=== PATIENT | male | born 1965 | race Caucasian/White ===

== ENCOUNTER 2021-09-26 09:47 | Outpatient (CLI) | payer OTHER, SELFPAY ==
--- OUTSIDE RECORDS SUMMARY | 2021-09-26 09:50 | XMS_ITS ---
:1965 Author Care Team Providers Name Role Phone Yuan Schulte Primary Care Provider Unavailable Allergies Code Code System Name Reaction Severity Status Onset NKDA ? Medications Name Status Start Date Stop Date ? ? amlodipine 10 mg tablet Active ? Not avai lable amoxicillin 500 mg capsule Active ? Not a vailable Take 1 capsule every 8 hours by oral route for 10 days. amoxicillin 875 mg-potassium clavulanate 125 mg tablet Completed ? 05/07/2021 atorvastatin 80 mg tablet Active ? Not av ailable cefdinir 300 mg capsule Active ? Not avai lable cefuroxime axetil 500 mg tablet Active ? Not available chlorthalidone 25 mg tablet Active ? Not available lisinopril 10 mg tablet Active ? Not avai lable methylprednisolone 4 mg tablets in a dose pack Completed ? 05/07/2021 metoprolol succinate ER 100 mg tablet,extended release Active ? Not available 24 hr naproxen Active ? Not available omeprazole 20 mg capsule,delayed release Active ? Not available Problems None recorded. Procedures None recorded. Results Lab Results Date Name Specimen Result Interpretation Description Value Range Status Address ? 08/31/2021 Rapid SARS CoV Nose (nasal ? Result negative ? ? [facility] 2 Ag, QL [place], passage) Ur [facility] Care Respiratory [place]: Specimen [address] , [place] 01/01/2021 SARS CoV 2 RNA, Nose (nasal ? Result positive ? ? [facility] QL, RENNY+probe, passage) Urgent Care Nose [place]: [address] , [place] Past Encounters 08/31/2021 Exposure to SARS-CoV-2 JARVIS Messina: [address], [place] [address], Ph. 05/18/2021 Acute Sinusitis JARVIS Messina: [address], [place] [address], Ph. 05/07/2021 Acute Sinusitis Yuan Schulte PA: [address], [address], [place] [address], Ph. 02/26/2021 Acute Sinusitis JARVIS Messina: [address], [address], [place] [address], Ph. 01/01/2021 Exposure to SARS-CoV-2 JARVIS Messina: [address], [address], [place] [address], Ph. Social History Tobacco Smoking Status Heavy Tobacco Smoker (1 pack per day) Vaccine List Vaccine Type COVID-19, mRNA, LNP-S, PF, 100 mcg/0.5 m L dose (Moderna) 03/30/2020 04/27/2020 02/06/2021 influenza, injectable, quadrivalent, pre servative free 12/08/2017 Td (adult) preservative free 04/03/2006 Tdap 08/11/2016 Plan of Care Patient Instructions RTC as needed. Push fluids and rest. Tylenol as needed for pain or fever. Mucinex otc as needed for congestion. Nasal saline flushes 3-4 times daily. Take Cefdinir as prescribed x 2 weeks. See care instructions. PCP follow up in 1-2 week if not resolvi ng, sooner if problems, to ED if worsening. Push fluids and rest. Tylenol as needed for pain or fever. Nasal saline flushes 3-4 times daily. Mucinex otc as needed for congestion. See care instructions. PCP follow up in 4-5 days if not improvi ng, sooner if problems, to ED if worsening. Sinusitis, patient doing well, no worri some findings today, elevated BP patient asymptomatic, Advised symptomatic cares, cover with Augmentin. Patient verbally agrees to the following plan. Push fluids and rest. Tylenol as needed for pain or fever. See PCP in follow up per routine for BP elevation, to ED if CP, SOB, BEJARANO, or weakness. See care instructions. PCP follow up in 4-5 days if not improvi ng, sooner if problems, to ED if worsening. Covid 19 infx, patient doing well, symp tomatic cares. Has follow up scheduled with PCP in 24 hours. Discussed rapid covid results with colt noriega and recommended quarantine per CDC guidelines. Patient to follow up with work for further guidelines. Patient appears well, vitals stable and no immediate conc erns. Patient understands and agrees wit h treatment plan and instructions. Symptom management discussed. Medication side effects discussed. Discussed risks? benefits? alternatives? side effects of treatment. If symptoms p rogress or worsen, patient should proceed to the emergency room immediately. All questions answered. See care instructions. PCP follow up tomorrow, to ED if worseni ng. Reminders Provider Appointments None recorded. ? ? Lab None recorded. ? ? Referral None recorded. ? ? Procedures None recorded. ? ? Surgeries None recorded. ? ? Imaging None recorded. ? ? Vitals 08/31/2021 01:40PM URGENT CARE Blood Pressure 158/79 mm[Hg] 05/18/2021 09:00AM URGENT CARE Blood Pressure 160/88 mm[Hg] 05/07/2021 09:45AM URGENT CARE FOLLOW UP Blood Pressure 173/97 mm[Hg] 02/26/2021 09:40AM URGENT CARE Blood Pressure 172/102 mm[Hg] 01/01/2021 02:15PM URGENT CARE Blood Pressure 146/97 mm[Hg]
--- OUTSIDE RECORDS SUMMARY | 2021-09-26 09:50 | XMS_ITS | Encounter Summary ---
:1965 Author Reason for Visit COVID-19 screening Assessment and Plan Assessment Note Discussed rapid covid results with jonathan ent. No treatment indicated as patient is asymptomatic. Patient in agreement and understanding. All questions answered. 1. Exposure to SARS-CoV-2 positive result given to patient ? coronavirus (covid-19): care instruct ions ? rapid SARS CoV 2 Ag, QL IA, respirato ry specimen ? COVID-19 counseling* ? COVID-19 QUARANTINE GUIDANCE [facility] Discussion Note: None recorded. Plan of Care Patient Instructions RTC as needed. Reminders Provider Appointments None recorded. ? ? Lab Rapid SARS CoV 2 Ag, QL IA, 08/31/2021 [facility] Respiratory Specimen [place] Referral None recorded. ? ? Procedures None recorded. ? ? Surgeries None recorded. ? ? Imaging None recorded. ? ? Medications Name Start Date ? ? amlodipine 10 mg tablet ? amoxicillin 500 mg capsule ? Take 1 capsule every 8 hours by oral route for 10 day s. atorvastatin 80 mg tablet ? cefdinir 300 mg capsule ? Take 1 capsule every 12 hours by oral route for 14 da ys. cefuroxime axetil 500 mg tablet ? chlorthalidone 25 mg tablet ? lisinopril 10 mg tablet ? metoprolol succinate ER 100 mg tablet,extended release 24 hr ? naproxen ? omeprazole 20 mg capsule,delayed release ? Medications Administered None recorded. Vitals Blood Pressure 158/79 mm[Hg] Results Lab Results Date Name Specimen Result Interpretation Description Value Range Status Address ? 08/31/2021 Rapid SARS CoV Nose (nasal ? Result negative ? ? [facility] 2 Ag, QL [place], passage) Ur [facility] Care Respiratory [place]: Specimen [address] , [place] Allergies Code Code System Name Reaction Severity Onset NKDA ? ? ? Problems None recorded. Procedures None recorded. Vaccine List Vaccine Type COVID-19, mRNA, LNP-S, PF, 100 mcg/0.5 m L dose (Moderna) 03/30/2020 04/27/2020 02/06/2021 influenza, injectable, quadrivalent, pre servative free 12/08/2017 Td (adult) preservative free 04/03/2006 Tdap 08/11/2016 Social History Tobacco Smoking Status Heavy Tobacco Smoker (1 pack per day) What is your level of alcohol consumption? Occasional Do you or have you ever used any other N forms of tobacco or nicotine? Family History Relation Problem Onset Age of Age Notes Father No current problems or (No Information) N/A ( No Notes) disability Mother No current problems or (No Information) N/A ( No Notes) disability Functional Status Unknown. Past Encounters 08/31/2021 Exposure to SARS-CoV-2 JARVIS Messina: [address], [place] [address], Ph. History of Present Illness ? COVID-19 Asymptomatic Reported By: Patient HPI: Contacts and Exposure close contact with a confirmed or suspected case of COVID-19, potential expos ure in specific settings where COVID-19 cases have been reported. Co ntext: Asymptomatic. Quality: none. Severity: none. Duration: no ne. Location: none. Modifying factors: none Notes: <div>Traveling, needs covid screening, no symptoms.</div> Review of Systems ? Urgent Care ROS Reported By: Patient Constitutional: Constitutional: no fever, no night sweats, no significant weight gain, no significant weight loss, no exercise intolerance, no chills, no m alaise Eyes: Eyes: no dry eyes, no vision change, no irritation, no eye disease/injury ENMT: Ears: no difficulty hearing, no ear pain. Nose: no frequent nosebleeds, no nose problems , no sinus problems, no congestion, loss of taste/sm ell: normal. Mouth/Throat: no sore throat, no bleeding gums, no snoring, no dry mouth, no mouth ulcers, no oral abnormalitie s, no teeth problems, no ringing in the ears, no sinusitis Cardiovascular: Cardiovascular: no chest anna marie n, no arm pain on exertion, no shortness of breath when wal dariel, no shortness of breath when lying down, no palpitations, no known heart murmur, no ankle swelling Respiratory: Respiratory: no cough, no wh eezing, no shortness of breath, no coughing up blood, no sleep apnea Gastrointestinal: Gastrointestinal: no abdomin al pain, no nausea, no vomiting, no constipation, normal appe tite, no diarrhea, not vomiting blood, no dyspepsia, no GERD , No loose stools Genitourinary: Genitourinary: no incontinen ce, no difficulty urinating, no hematuria, no increased freq uency, no dysuria Musculoskeletal: Musculoskeletal: no muscle a ches, no arthralgias/joint pain, no back pain, no swelling in the extremities, no neck pain, no difficulty walking, muscle w eakness, no cramps, no osteoporosis, no fractures Integumentary: Skin: no abnormal mole, no j aundice, no rashes, no laceration, no non-healing areas, no nicanor nges in hair/nails, no psoriasis, no change in skin color, no breast lump Neurologic: Neurologic: no loss of consc iousness, no weakness, no numbness, no seizures, no di zziness, no migraines, no tremor, no gait dysfunction, no para lysis Psychiatric: Psych: no depression, no sle ep disturbances, feeling safe in a relationship, no alcohol abu se, no anxiety, no hallucinations, no suicidal thoughts, no moo d swings, no memory loss, no agitation, no dementia, no d elirium Endocrine: Endocrine: no fatigue Hematologic/Lymphatic: Hematologic/Lymphatic no swo llen glands, no bruising, no excessive bleeding, no anemi a, no phlebitis Allergic/Immunologic: Allergy/Immunologic: no runn y nose, no sinus pressure, no itching, no hives, no freque nt sneezing Physical Exam ? COVID-19 Exam Reported By: Patient General Appearance: General Appearance normal ap pearance, no distress ENMT: Ears: hearing grossly intact Lungs: Auscultation non-labored res piration Abdomen: Abdomen not distended
--- OUTSIDE RECORDS SUMMARY | 2021-09-26 09:50 | XMS_ITS | Encounter Summary ---
:1965 Author Organization [facility] Address [address] [place] [address] Care Team Providers Name Role Phone Unavailable Primary Care Provider Unavailable Reason for Visit Procedure/Equipment (Routine) - Incomplete Specialty Diagnoses / Procedures Referred By Contact Refer red To Contact Procedures Lenard Taylor MD Foreign Image(S) MR Extremity [address] [place], [place] [address] Referral ID Status Reason Start Date Expiration Date Visits V isits Requested Authorized [id number] Incomplete 03/26/2016 06/25/2017 1 1 Encounter Details Date Type Department Care Team Description 03/09/2016 Imaging [id number] RADIOLOGY CENTRAL FILM Lenard Traore MD LIBRARY [address] [facility] [address] [facility]. [place], [place] [id number] [place] [address] Social History Tobacco Use Types Packs/Day Years Used Date Smoking Tobacco: Never Assessed Sex Assigned at Date Recorded Not on file documented as of this encounter Plan of Treatment Not on filedocumented as of this encounter Procedures Procedure Name Priority Date/Time Associated Diagnosis Comme nts FOREIGN IMAGE(S) MR Routine 03/09/2016 12:00 AM R esults for this EXTREMITY LT CAN SOLDERER procedure are i n the results section. documented in this encounter Results Foreign Image(S) MR Extremity Lt (03/09/2016 12:00 AM CAN SOLDERER) Specimen (Source) Anatomical Location Collection Method / Collectio n Time Received Time / Laterality Volume Narrative PN POCT - 03/26/2016 8:25 AM CAN SOLDERER These outside images have been uploaded into PACS. If the results were provided, they will be located on the Me rosaroi tab in the patient's chart. Lenard Taylor MD RAD NON-REPORTABLES Performing Organization Address City/State/ZIP Code Phon e Number POCT PN POCT documented in this encounter Visit Diagnoses Not on filedocumented in this encounter
--- OUTSIDE RECORDS SUMMARY | 2021-09-26 09:50 | XMS_ITS | Encounter Summary ---
:1965 Author Organization [facility] Address [address] [place] [address] Care Team Providers Name Role Phone Pcp, Pt Declines MD Primary Care Provider Reason for Visit Procedure/Equipment (Routine) - Incomplete Specialty Diagnoses / Procedures Referred By Contact Refer red To Contact Diagnoses Left shoulder pain, unspecified chronicity Lenard Taylor MD Procedures XR Shoulder Lt 2+ Views [address] [facility] [address] [place], [place] [address] Referral ID Status Reason Start Date Expiration Date Visits V isits Requested Authorized [id number] Incomplete 04/16/2016 07/16/2017 1 1 Encounter Details Date Type Department Care Team Description 04/16/2016 Imaging [facility] Lenard Taylor, Left shoulder pain, [address] [facility] unspecified chronicity [place], [place] [address] [address] [facility] [phone] [place] [address] (Wo rk) Social History Tobacco Use Types Packs/Day Years Used Date Smoking Tobacco: Every Day Sex Assigned at Date Recorded Not on file documented as of this encounter Plan of Treatment Not on filedocumented as of this encounter Procedures Procedure Name Priority Date/Time Associated Diagnosis Comme nts XR SHOULDER LT 2+ Routine 04/16/2016 4:23 PM Left shoulder anna marie n, Results for this VIEWS STAGE SET DESIGNER unspecified procedure are i n chronicity the results section. documented in this encounter Results XR Shoulder Lt 2+ Views (04/16/2016 4:23 PM STAGE SET DESIGNER) Anatomical Region Laterality Modality Upper Extremity, Shoulder Digital Radiog valerie Specimen (Source) Anatomical Location Collection Method / Collectio n Time Received Time / Laterality Volume Narrative 04/19/2016 3:54 PM STAGE SET DESIGNER X-rays of the left shoulder demonstrate advanced stage osteoarthritis of the glenohumeral joint with posterior an d inferior osteophytes and significant full-thickness cartilage los s. No deformity or significant erosion of the glenoid or humeral head. Some fraying and partial tearing of the posterosuperior glenoid labral. N o obvious rotator cuff disease or tearing. Lenard Taylor MD RAD GD documented in this encounter Visit Diagnoses Diagnosis Left shoulder pain, unspecified chronici ty documented in this encounter Care Teams Machine Heel Sprayer Relationship Specialty Start Date End Date PcpBenny MD PCP - General 03/18/16 [place], [place] [phone] documented as of this encounter
--- NOTE | 2021-09-26 10:00 | CRLHL7_ITS ---
For Patients: As a result of the Cures Act, medical imaging exams and procedure reports are released immediately into your electronic medical record. You may view this report before your referring provider. If you have questions, please contact your health care provider. Indication: Sinusitis Technique: Performed without IV contrast Comparison: None available Findings: Frontal sinuses: Near complete opacification of the left frontal sinus. Clear right frontal sinus. Ethmoid sinuses: Near complete opacification of the left ethmoid sinus. Clear right ethmoid sinus. Maxillary sinuses: Complete opacification of the left maxillary sinus with obstruction of the sinus drainage pathway. Clear right maxillary sinus and patent right ostiomeatal complex. Sphenoid sinuses: Near complete opacification of the left sphenoid sinus with obstruction of the sphenoethmoidal recess. Clear right sphenoid sinus with patent right sphenoethmoidal recess. Nasal Cavity: Leftward curvature of the nasal septum. The middle turbinate is obscured by soft tissue thickening. Right-sided turbinates are normal. No TMJ abnormalities identified. The visualized portions of the orbits, intracranial contents and upper soft tissue neck are grossly negative. Impression: 1. Severe left-sided sinus disease with obstruction of the left-sided sinus drainage pathways. 2. Soft tissue density within the left nasal cavity with obscuration of the left middle turbinates suggesting polyps. Please note that all CT scans at this facility use dose modulation, iterative reconstruction, and/or weight-based dosing when appropriate to reduce radiation dose to as low as reasonably achievable. Dictated by Alec Winkler MD @ 09/26/2021 10:16:17 AM (Electronically Signed)
== END 2021-09-26 09:48 | disposition home or self-care (01) ==
PROVIDERS: PCP Family Medicine; Visit Provider Otolaryngology
DX: J32.9 Chronic sinusitis, unspecified (principal); J34.89 Other specified disorders of nose and nasal sinuses
CPT/HCPCS: 70486

== ENCOUNTER 2021-10-08 10:06 | Outpatient (CLI) | payer OTHER, SELFPAY ==
--- OUTSIDE RECORDS SUMMARY | 2021-10-08 10:08 | XMS_ITS | Clinical Summary ---
:1965 Author Organization [facility] Address [address] [place] [address] Care Team Providers Name Role Phone Pcp, Pt Declines MD Primary Care Provider Source Comments You are receiving this document as you are listed as the primary care provider,follow-up provider, or the patient has been referred to you for consultation.This is in compliance with the Medicare and Medicaid EHR Incentive Program,which states Providers who transition their patient to another setting of careor provider of care or refers their patient to another provider of care shouldprovide summarycare record for each transition of care or referral. [facility] Allergies No known active allergies Medications Medication Sig Dispensed Refills Start Date End Date Status aspirin 81 MG tablet Take 81 mg by 0 Active mouth daily. omeprazole (PRILOSEC) 20 Take 20 mg by 0 Active MG capsule mouth daily. Take 1 hour before a meal. acetaminophen (TYLENOL 8 Take 650 mg by 0 Active HOUR ARTHRITIS PAIN) 650 mouth every 8 MG controlled release hours as needed tablet for Pain. atorvastatin (LIPITOR) 40 Take 40 mg by 0 Active MG tablet mouth daily. amLODIPine (NORVASC) 10 Take 10 mg by 0 Active MG tablet mouth daily. atenolol (TENORMIN) 100 Take 100 mg by 0 Active MG tablet mouth daily. chlorthalidone (HYGROTON) Take 25 mg by 0 Active 25 MG tablet mouth daily. predniSONE (DELTASONE) 20 Take 20 mg by 0 Active MG tablet mouth daily. cyclobenzaprine Take 5 mg by 0 A ctive (FLEXERIL) 5 MG tablet mouth three times a day as needed for Muscle Spasms. Active Problems No known active problems Social History Tobacco Use Types Packs/Day Years Used Date Smoking Tobacco: Every Day Sex Assigned at Date Recorded Not on file Last Filed Vital Signs Vital Sign Reading Time Taken Comments Blood Pressure - - Pulse - - Temperature - - Respiratory Rate - - Oxygen Saturation - - Inhaled Oxygen Concentration - - Weight 108.9 kg (240 lb) 04/16/2016 3:46 PM RECONCILING CLERK Height 170.2 cm (5' 7) 04/16/2016 3:46 PM RECONCILING CLERK Body Mass Index 37.59 04/16/2016 3:46 PM RECONCILING CLERK Plan of Treatment Health Maintenance Due Date Last Done Comments Colon Cancer Screening Plan Due 1965 Hep C Screening (Preventive 1965 Services) HepB (1) 1965 COVID-19 Vaccine (#1) 1965 HIV Screening (Preventive 1982 Services) Adult Preventive Visit 02/10/1984 DTaP/Tdap/Td (1 - Tdap) 1985 Cholesterol 2001 Zoster/Shingles (1 of 2) 02/10/2016 Influenza (#1) 2021 HepA Aged Out No longer eligib le based on patient's age to complete this topic Hib Aged Out No longer eligib le based on patient's age to complete this topic IPV (Polio) Aged Out No longer eligib le based on patient's age to complete this topic MCV4 Aged Out No longer eligib le based on patient's age to complete this topic Pneumococcal Aged Out No longer eligib le based on patient's age to complete this topic Insurance Payer Benefit Plan / Subscriber ID Effective Dates Phone Addre ss Type Group BCBS BCBS MNCARE [id number] 2016-Present [address] [address] [place] [address] Care Teams Retail Support Specialist Relationship Specialty Start Date End Date PcpBenny MD PCP - General 03/18/16 [place] [address]
--- OUTSIDE RECORDS SUMMARY | 2021-10-08 10:08 | XMS_ITS | Encounter Summary ---
[...] ? COVID-19 counseling* ? COVID-19 QUARANTINE GUIDANCE [facility] Discussion Note: None recorded. Plan of Care Patient Instructions RTC as needed. Reminders Provider Appointments None recorded. ? ? Lab Rapid SARS CoV 2 Ag, QL [place], 08/31/2021 [facility] Respiratory Specimen [place] Referral None recorded. ? ? Procedures None [...] [facility] 2 Ag, QL [place], passage) Ur [facility] Care Respiratory [place]: Specimen [address] , [place] Allergies Code Code System Name Reaction Severity [...] JARVIS Messina: [address], [place] [address], Ph. History of Present Illness ? COVID-19 [...]
--- OUTSIDE RECORDS SUMMARY | 2021-10-08 10:08 | XMS_ITS | Encounter Summary ---
:1965 Author Organization [facility] Address [address] [place] [address] Care Team Providers Name Role Phone Unavailable Primary Care Provider Unavailable Reason for Visit Procedure/Equipment (Routine) - Incomplete Specialty Diagnoses / Procedures Referred By Contact Refer red To Contact Procedures Lenard Taylor MD Foreign Image(S) MR Extremity [address] [place], [place] [address] Referral ID Status Reason Start Date Expiration Date Visits V isits Requested Authorized [id number] Incomplete 03/26/2016 06/25/2017 1 1 Encounter Details Date Type Department Care Team Description 03/09/2016 Imaging [id number] RADIOLOGY CENTRAL FILM Lenard Traore MD LIBRARY [address] [facility] [address] [facility]. [place], [place] [id number] [place] [address] Social History Tobacco Use Types Packs/Day Years Used Date Smoking Tobacco: Never Assessed Sex Assigned at Date Recorded Not on file documented as of this encounter Plan of Treatment Not on filedocumented as of this encounter Procedures Procedure Name Priority Date/Time Associated Diagnosis Comme nts FOREIGN IMAGE(S) MR Routine 03/09/2016 12:00 AM R esults for this EXTREMITY LT CHIEF LIBRARIAN CIRCULATION DEPARTMENT procedure are i n the results section. documented in this encounter Results Foreign Image(S) MR Extremity Lt (03/09/2016 12:00 AM CHIEF LIBRARIAN CIRCULATION DEPARTMENT) Specimen (Source) Anatomical Location Collection Method / Collectio n Time Received Time / Laterality Volume Narrative PN POCT - 03/26/2016 8:25 AM CHIEF LIBRARIAN CIRCULATION DEPARTMENT These outside images have been uploaded into PACS. If the results were provided, they will be located on the Me rosario tab in the patient's chart. Lenard Taylor MD RAD NON-REPORTABLES Performing Organization Address City/State/ZIP Code Phon e Number POCT PN POCT documented in this encounter Visit Diagnoses Not on filedocumented in this encounter
--- OUTSIDE RECORDS SUMMARY | 2021-10-08 10:08 | XMS_ITS ---
[...] [address] , [place] 01/01/2021 SARS CoV 2 RNA, Nose (nasal ? Result positive ? ? [facility] QL, RENNY+probe, passage) Urgent Care Nose [place]: [address] , [place] Past Encounters 08/31/2021 Exposure to SARS-CoV-2 JARVIS Messina: [address], [place] [address], Ph. 05/18/2021 Acute Sinusitis JARVIS Messina: [address], [place] [address], Ph. 05/07/2021 Acute Sinusitis Yuan Schulte PA: [address], [address], [place] [address], Ph. 02/26/2021 Acute Sinusitis JARVIS Messina: [address], [address], [place] [address], Ph. 01/01/2021 Exposure to SARS-CoV-2 JARVIS Messina: [address], [address], [place] [address], Ph. Social History Tobacco Smoking Status Heavy [...]
--- OUTSIDE RECORDS SUMMARY | 2021-10-08 10:08 | XMS_ITS | Encounter Summary ---
:1965 Author Organization [employer] Address [address] [place] [address] Care Team Providers Name Role Phone Pcp, Pt Declines MD Primary Care Provider Reason for Referral Procedure/Equipment (Routine) - Incomplete Specialty Diagnoses / Procedures Referred By Contact Refer red To Contact Diagnoses Left shoulder pain, unspecified chronicity Lenard Taylor MD Procedures XR Shoulder Lt 2+ Views [address] [place], [place] [address] Referral ID Status Reason Start Date Expiration Date Visits V isits Requested Authorized [id number] Incomplete 04/16/2016 07/16/2017 1 1 DENSITY FINISHING OPERATOR Reason for Visit Reason Comments SHOULDER PAIN Encounter Details Date Type Department Care Team Description 04/16/2016 Surgical Consult [facility] Lenard Taylor shoulder pain, DEBBIE Helms MD unspecified [address] chronicity (Primary [place], [place] Dx) [id number] Social History Tobacco Use Types Packs/Day Years Used Date Smoking Tobacco: Every Day Sex Assigned at Date Recorded Not on file documented as of this encounter Last Filed Vital Signs Vital Sign Reading Time Taken Comments Blood Pressure - - Pulse - - Temperature - - Respiratory Rate - - Oxygen Saturation - - Inhaled Oxygen Concentration - - Weight 108.9 kg (240 lb) 04/16/2016 3:46 PM HIGH DENSITY FINISHING OPERATOR Height 170.2 cm (5' 7) 04/16/2016 3:46 PM HIGH DENSITY FINISHING OPERATOR Body Mass Index 37.59 04/16/2016 3:46 PM HIGH DENSITY FINISHING OPERATOR documented in this encounter Progress Notes Lenard Taylor MD - 04/18/2016 11:12 AM CST NAME: KYAW SMITH MR#: [id number] CSN: [id number] AUTHENTICATING CLINICIAN: Lenard Taylor MD CONFIRM #: [id number] LOC: 711 CLINIC PROGRESS NOTE DATE OF VISIT: 04/16/2016 : 1965 REASON FOR CONSULTATION: Left shoulder pain. HISTORY OF PRESENT ILLNESS: Mr. Smith is a right-hand dominant, 51-year-old gentleman with an unremarkable past medical history who has been having increasing discomfort in his left shoulder over the past 6 weeks without any specific inciting event. 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 He has a insignificant orthopaedic history and never received any sort of injections, surgery or prior injury to this left shoulder. He has no significant change inhis strength in his upper extremities and notes most of his discomfort to be during overhead activities while at work. Otherwise, the patient does not engage in any other strenuous activity that would stress the shoulder as his main hobby is fishing and ice fishing. REVIEW OF SYSTEMS: A 15-point review of systems was conducted and otherwise negative except for HPI above. PAST MEDICAL HISTORY: Hypertension. PAST SURGICAL HISTORY: Noncontributory. MEDICATIONS: As reviewed on electronic medical record. ALLERGIES: No known drug allergies. SOCIAL HISTORY: 1.Right-hand dominant. 2.Employed as a contractor and licensed physical therapist assistant, self-employed. 3., lives with . 4.Main hobbies include fishing and ice fishing. IMAGING: Review of MRI performed at [facility]. X-rays were ordered and independently reviewed by me. X-rays of the left shoulder demonstrate advanced stage osteoarthritis of the glenohumeral joint withposterior and inferior osteophytes and significant full- thickness cartilage loss. No deformity or significant erosion of the glenoid or humeral head. Some fraying and partial tearing of the posterosuperior glenoid labral. No obvious rotator cuff disease or tearing. IMPRESSION: 1.Advanced stage glenohumeral osteoarthritis. 2.Partial tearing of the posterosuperior labrum, left shoulder. PLAN: It was determined at this time that although the patient has advanced degenerative arthritis it is not significant enough at this point to undergo any sort of surgical intervention. Although the patient remains young, he is employed in a field where he consistently puts significant stress across his gl enohumeral joint and will require full shoulder replacement at some point in his future. Given that osteoarthritis is the disease process at hand, physical therapy will not be beneficial in improving his function and provide him with any pain relief. The best course of action at this time is to remainwith conservative management and to undergo daily stretching in order to maintain range of motion inaddition to modifying his activity and trying to limit the amount of strenuous activity he performs at his job. Furthermore, in order to plan accordingly for his future, it would be prudent for the patient to remain diligent in his followup and to return to clinic to see Dr. Taylor in one year's time with repeat 3 views of the left shoulder. This is in attempts to maintain close followup to prevent any further bony degradation or erosion that would preclude the patient to a more difficult operation in the future. If the patient has any questions or concerns or new issues that may arise prior to this one year followup, then he may call or arrange a closer followup date. All questions and concerns were addressed with this patient by Dr. Taylor to the patient's satisfaction. This patient was seen by and evaluated with Dr. Taylor who agrees with the above assessment and plan. I have personally examined this patient, and have reviewed the clinical presentation and progress note, including the pertinent radiographs, with the resident. I agree with the treatment plan as outlined. The plan was formulated with the resident on the day of the dictation and personally edited by mewhere appropriate. I personally discussed the treatment plan with the patient. Dictated by: Holland Cantu MD JPB: C: R:04/16/16 17:35 CONFIRM#:[id number] DENSITY FINISHING OPERATOR documented in this encounter Plan of Treatment Not on filedocumented as of this encounter Results XR Shoulder Lt 2+ Views (04/16/2016 4:23 PM HIGH DENSITY FINISHING OPERATOR) Anatomical Region Laterality Modality Upper Extremity, Shoulder Digital Radiog valerie Specimen (Source) Anatomical Location Collection Method / Collectio n Time Received Time / Laterality Volume Narrative 04/19/2016 3:54 PM HIGH DENSITY FINISHING OPERATOR X-rays of the left shoulder demonstrate advanced [...] Diagnosis Left shoulder pain, unspecified chronici ty - Primary Left shoulder pain, unspecified chronici ty documented in this encounter Care Teams Artillery Or Naval Gunfire Observer Relationship Specialty Start Date End Date Pcp, Benny Wood MD PCP - General 03/18/16 [place] [address] documented as of this encounter
--- OUTSIDE RECORDS SUMMARY | 2021-10-08 10:08 | XMS_ITS | Encounter Summary ---
:1965 Author Organization [employer] Address [address] [place] [address] Care Team Providers Name Role Phone Pcp, Pt Declines MD Primary Care Provider Reason for Visit Procedure/Equipment (Routine) - Incomplete Specialty Diagnoses / Procedures Referred By Contact Refer red To Contact Diagnoses Left shoulder pain, unspecified chronicity Lenard aTylor MD Procedures XR Shoulder Lt 2+ Views [address] [facility] [address] [place], [place] [address] Referral ID Status Reason Start Date Expiration Date Visits V isits Requested Authorized [id number] Incomplete 04/16/2016 07/16/2017 1 1 Encounter Details Date Type Department Care Team Description 04/16/2016 Imaging [facility] Lenard Taylor, Left shoulder pain, [address] [facility] unspecified chronicity [place], [place] [address] [address] [facility] [phone] [place] [address] (Wo rk) Social History Tobacco Use Types [...] anna marie n, Results for this VIEWS TANK PUMPER PANELBOARD unspecified procedure are i n chronicity the results section. documented in this encounter Results XR Shoulder Lt 2+ Views (04/16/2016 4:23 PM TANK PUMPER PANELBOARD) Anatomical Region Laterality Modality Upper Extremity, Shoulder Digital Radiog valerie Specimen (Source) Anatomical Location Collection Method / Collectio n Time Received Time / Laterality Volume Narrative 04/19/2016 3:54 PM TANK PUMPER PANELBOARD X-rays of the left shoulder demonstrate advanced [...] ty documented in this encounter Care Teams Medical Genetics Director Relationship Specialty Start Date End Date PcpBenny MD PCP - General 03/18/16 [place], [place] [address] documented as of this encounter
--- NOTE | 2021-10-08 10:15 | MR_ITS ---
[address] [address] Phone:?[phone] Fax:?[phone] Referring Physician Information: Carl Sandoval M.D. [address] [place] [address] Phone:?[phone] Fax:?[phone] Patient:Filomena Medellin D.O.B:?1965 Sex:?Male Phone:?[phone] [facility] MRN:?[id number] Exam Date:?10/08/2021 ? EXAM: MRI of the LEFT SHOULDER, without contrast CLINICAL HISTORY: Left shoulder pain. Primary osteoarthritis. Evaluate for rotator cuff pathology. COMPARISONS: MRI 03/09/2016. TECHNICAL: MRI sequences of the left shoulder: Axials: PD, T2 Coronals: PD, STIR, T2 Sagittals: PD, T2 SEDATION: None CONTRAST: None FINDINGS: Bones: No fracture or destructive osseous lesion is seen. Coracoacromial arch: Acromion: No os acromiale. Type II acromion. Acromiohumeral space: The bony distance is unremarkable. Coracohumeral space: The bony distance measures 7-8 mm. Acromioclavicular joint: Mild degenerative changes with mild inferior osteophytosis/hypertrophy. Coracoclavicular ligament: The coracoclavicular ligament is intact. Rotator cuff muscles/tendons: Supraspinatus: Slight interstitial delamination/slight tendinopathy. No tendon tear or muscular atrophy. Infraspinatus: The infraspinatus tendon and muscle are intact. Teres minor: The teres minor tendon and muscle are intact. Subscapularis: Moderate to marked tendinopathy of the superior portion of the subscapularis tendon, mildly to moderately progressed compared to previous MRI 03/09/2016. No atrophy of the subscapularis muscle. Labrum: Fraying and degenerative tearing of the entire labrum. Proximal biceps tendon, long head and short heads: The long and short heads of the proximal biceps tendon are intact. Glenohumeral joint: Small glenohumeral joint effusion. Foci of ill-defined low signal likely reflect a combination of intra-articular bodies and synovitis. There is extensive near full-thickness and full-thickness chondral loss over all portions of the humeral head and glenoid with degenerative subchondral cystic changes within the anteroinferior portion the glenoid. There is marked osteophytosis at the inferior aspect of the glenohumeral joint. Glenohumeral joint osteoarthritic changes have mildly to moderately progressed compared to previous MRI 03/09/2016. No convincing evidence of capsular edema or thickening although evaluation is suboptimal because of lack of joint distention. Bursae: Subacromial/subdeltoid: No convincing subacromial bursal thickening/bursitis. Subcoracoid: No convincing subcoracoid bursal thickening/bursitis. IMPRESSION: 1. Marked left glenohumeral joint osteoarthritic changes, mildly to mildly progressed compared to previous MRI 03/09/2016 (including extensive near full- thickness and full-thickness chondral loss over all portions of the humeral head and glenoid, degenerative subchondral cystic changes within the anteroinferior portion the glenoid, marked osteophytosis, and fraying and degenerative tearing of the entire labrum). Small glenohumeral joint effusion. Foci of ill-defined low signal within the glenohumeral joint likely reflect a combination of intra- articular bodies and synovitis. 2. Slight interstitial delamination/slight tendinopathy of the supraspinatus tendon. 3. Moderate to marked tendinopathy of the superior portion of the subscapularis tendon, mildly to mildly progressed compared to previous MRI 03/09/2016. 4. No retracted rotator cuff tendon tear or rotator cuff muscular atrophy. 5. Intact biceps tendon. RCB Electronically signed on 10/08/2021 3:35:00 PM by Vladimir Cabello M.D.
== END 2021-10-08 10:07 | disposition home or self-care (01) ==
LOC: MRI 10:06
PROVIDERS: PCP Family Medicine; Visit Provider Orthopaedic Surgery
DX: M19.012 Primary osteoarthritis, left shoulder (principal); M25.412 Effusion, left shoulder; S43.492A Other sprain of left shoulder joint, initial encounter
CPT/HCPCS: 73221

== ENCOUNTER 2021-10-24 09:14 | Outpatient (CLI) | payer OTHER, SELFPAY ==
--- OUTSIDE RECORDS SUMMARY | 2021-10-24 09:17 | XMS_ITS | Encounter Summary ---
:1965 Author Organization [facility] Address [address] [place] [address] Care Team Providers Name Role Phone Unavailable Primary Care Provider Unavailable Reason for Visit Procedure/Equipment (Routine) - Incomplete Specialty Diagnoses / Procedures Referred By Contact Refer red To Contact Procedures Lenard Taylor MD Foreign Image(S) MR Extremity [address] [place], [place] [address] Referral ID Status Reason Start Date Expiration Date Visits V isits Requested Authorized [id number] Incomplete 03/26/2016 06/25/2017 1 1 Encounter Details Date Type Department Care Team Description 03/09/2016 Imaging [id number] RADIOLOGY CENTRAL FILM Lenard Traore MD LIBRARY [address] [facility] [address] [facility]. [place], [place] [id number] [place] [address] Social History Tobacco Use Types Packs/Day Years Used Date Smoking Tobacco: Never Assessed Sex Assigned at Date Recorded Not on file documented as of this encounter Plan of Treatment Not on filedocumented as of this encounter Procedures Procedure Name Priority Date/Time Associated Diagnosis Comme nts FOREIGN IMAGE(S) MR Routine 03/09/2016 12:00 AM R esults for this EXTREMITY LT GLUTEN SETTLING TENDER procedure are i n the results section. documented in this encounter Results Foreign Image(S) MR Extremity Lt (03/09/2016 12:00 AM GLUTEN SETTLING TENDER) Specimen (Source) Anatomical Location Collection Method / Collectio n Time Received Time / Laterality Volume Narrative PN POCT - 03/26/2016 8:25 AM GLUTEN SETTLING TENDER These outside images have been uploaded into PACS. If the results were provided, they will be located on the Me rosario tab in the patient's chart. Lenard Taylor MD RAD NON-REPORTABLES Performing Organization Address City/State/ZIP Code Phon e Number POCT PN POCT documented in this encounter Visit Diagnoses Not on filedocumented in this encounter
--- OUTSIDE RECORDS SUMMARY | 2021-10-24 09:17 | XMS_ITS | Encounter Summary ---
:1965 Author Organization [employer] Address [address] [place] [address] Care Team Providers Name Role Phone Pcp, Pt Declines MD Primary Care Provider Reason for Visit Procedure/Equipment (Routine) - Incomplete Specialty Diagnoses / Procedures Referred By Contact Refer red To Contact Diagnoses Left shoulder pain, unspecified chronicity Lenard Taylor MD Procedures XR Shoulder Lt 2+ Views [address] [facility] [address] [place], [place] [address] Referral ID Status Reason Start Date Expiration Date Visits V isits Requested Authorized [id number] Incomplete 04/16/2016 07/16/2017 1 1 Encounter Details Date Type Department Care Team Description 04/16/2016 Imaging [facility] Lenard Taylor, Left shoulder pain, [address] [facility] unspecified chronicity [place], [place] [address] [address] [facility] [phone] [place] [address] (Wo rk) Social History Tobacco Use Types [...] anna marie n, Results for this VIEWS REAL ESTATE ASSISTANT unspecified procedure are i n chronicity the results section. documented in this encounter Results XR Shoulder Lt 2+ Views (04/16/2016 4:23 PM REAL ESTATE ASSISTANT) Anatomical Region Laterality Modality Upper Extremity, Shoulder Digital Radiog valerie Specimen (Source) Anatomical Location Collection Method / Collectio n Time Received Time / Laterality Volume Narrative 04/19/2016 3:54 PM REAL ESTATE ASSISTANT X-rays of the left shoulder demonstrate advanced [...] ty documented in this encounter Care Teams Compressor Station Engineer Relationship Specialty Start Date End Date PcpBenny MD PCP - General 03/18/16 [place], [place] [address] documented as of this encounter
--- OUTSIDE RECORDS SUMMARY | 2021-10-24 09:17 | XMS_ITS | Encounter Summary ---
[...] ? COVID-19 counseling* ? COVID-19 QUARANTINE GUIDANCE [facility] Discussion Note: None recorded. Plan of Care Patient Instructions RTC as needed. Reminders Provider Appointments None recorded. ? ? Lab Rapid SARS CoV 2 Ag, QL [place], 08/31/2021 [facility] Respiratory Specimen [place] Referral None recorded. ? ? Procedures None [...] Compcare 2 Ag, QL [place], passage) Ur [facility] Care Respiratory [place]: Specimen [address] , [place] Allergies Code Code System Name Reaction Severity [...] JARVIS Messina: [address], [place] [address], Ph. History of Present Illness ? COVID-19 [...]
--- OUTSIDE RECORDS SUMMARY | 2021-10-24 09:17 | XMS_ITS | Clinical Summary ---
:1965 Author Organization [employer] [place] [address] Care Team Providers Name Role Phone Osvaldo Kang MD Primary Care Provider Allergies No known active allergies Medications Medication Sig Dispensed Refills Start Date End Date Status aspirin (ECOTRIN) 81 mg Take 81 mg by 0 Active enteric coated tablet mouth. acetaminophen SR Take 650 mg by 0 Active (TYLENOL ARTHRITIS) 650 mouth every 8 mg Extended-Release hours if needed. tablet amLODIPine (NORVASC) 10 0 09/22/2020 Active mg tablet atorvastatin (LIPITOR) 0 09/22/2020 Active 80 mg tablet chlorthalidone 0 09/22/2020 Acti ve (HYGROTON) 25 mg tablet metoprolol succinate 0 09/22/2020 Active (TOPROL XL) 100 mg Sustained-Release tablet omeprazole (PRILOSEC) 20 0 09/22/2020 Active mg Delayed-Release capsule methylPREDNISolone Take by mouth as 21 Tablet 0 11/13/2020 Active (Medrol, Srinath,) 4 mg instructed per tabletIndications: DDD packaging. (degenerative disc disease), cervical Active Problems No known active problems Social History Tobacco Use Types Packs/Day Years Used Date Current Every Day Smoker Cigarettes Smokeless Tobacco: Never Used Tobacco Cessation: Ready to Quit: No; Co unseling Given: Yes Sex Assigned at Date Recorded Not on file Obstetrics History Last Filed Vital Signs Vital Sign Reading Time Taken Comments Blood Pressure 163/96 11/13/2020 9:12 AM CDT Pulse 94 11/13/2020 9:09 AM CDT Temperature 36.6 ??C (97.9 ??F) 11/13/2020 9:09 AM CDT Respiratory Rate - - Oxygen Saturation 97% 11/13/2020 9:09 AM CDT Inhaled Oxygen Concentration - - Weight 113.3 kg (249 lb 12.8 oz) 11/13/2020 9:09 AM CDT Height - - Body Mass Index - - Plan of Treatment Health Maintenance Due Date Last Done Comments COVID-19 vaccine series (#1) 1966 Pneumococcal series for age 19-64 (1 - PCV) 02/10/1972 Tdap 1977 Depression screening for age 12+ 1978 BMI (ht and wt on same day) for age 18+ 02/10/1984 Hepatitis C screening for age 18-79 02/10/1984 Tetanus booster 1986 Colonoscopy through age 75 2011 Lipids for age 45-75 2011 Zoster (shingles) series for age 50+ (1 of 2) 02/10/2016 Influenza for age 50-64 10/18/2021 Results Not on filefrom Last 3 Months Insurance Payer Benefit Plan / Subscriber ID Effective Dates Phone Addre ss Type Group [employer] [id number] 2019-[employer] [address] [place] [address] Care Teams Locomotive Engineer Electric Relationship Specialty Start Date End Date Osvaldo Kang MD PCP - General Family Practice 11/13/201999 [place] [phone]
--- OUTSIDE RECORDS SUMMARY | 2021-10-24 09:17 | XMS_ITS ---
[...] Compcare 2 Ag, QL [place], passage) Ur [facility] Care Respiratory [place]: Specimen [address] , [place] 01/01/2021 SARS CoV 2 RNA, Nose (nasal ? Result positive ? ? Compcare QL, RENNY+probe, passage) Urgent Care Nose [place]: [address] , [place] Past Encounters 08/31/2021 Exposure to SARS-CoV-2 JARVIS Messina: [address], [place] [address], Ph. 05/18/2021 Acute Sinusitis JARVIS Messina: [address], [place] [address], Ph. 05/07/2021 Acute Sinusitis Yuan Schulte PA: [address], [address], [place] [address], Ph. 02/26/2021 Acute Sinusitis JARVIS Messina: [address], [address], [place] [address], Ph. 01/01/2021 Exposure to SARS-CoV-2 JARVIS Messina: [address], [address], [place] [address], Ph. Social History Tobacco Smoking Status Heavy [...]
[2021-10-24 14:59] LABS: SARS PCR* Negative SARS-CoV-2 (Negative)
== END 2021-10-24 09:15 | disposition home or self-care (01) ==
LOC: FBOREF 09:15
PROVIDERS: PCP Family Medicine; Visit Provider Otolaryngology
DX: Z20.822 Contact with and (suspected) exposure to COVID-19 (principal)
CPT/HCPCS: 87635

== ENCOUNTER 2021-10-24 11:23 | Outpatient (CLI) | payer OTHER, SELFPAY ==
--- OUTSIDE RECORDS SUMMARY | 2021-10-24 11:34 | XMS_ITS ---
[...] [address] , [place] 01/01/2021 SARS CoV 2 RNA, Nose (nasal ? Result positive ? ? Compcare QL, RENNY+probe, passage) Urgent Care Nose [place]: [address] , [place] Past Encounters 08/31/2021 Exposure to SARS-CoV-2 JARVIS Messina: [address], [place] [address], Ph. 05/18/2021 Acute Sinusitis JARVIS Messina: [address], [place] [address], Ph. 05/07/2021 Acute Sinusitis Yuan Schulte PA: [address], [address], [place] [address], Ph. 02/26/2021 Acute Sinusitis JARVIS Messina: [address], [address], [place] [address], Ph. 01/01/2021 Exposure to SARS-CoV-2 JARVIS Messina: [address], [place] [address], Ph. Social History Tobacco Smoking Status Heavy [...]
--- OUTSIDE RECORDS SUMMARY | 2021-10-24 11:34 | XMS_ITS | Encounter Summary ---
:1965 Author Organization [facility] Address [address] [place] [address] Care Team Providers Name Role Phone Unavailable Primary Care Provider Unavailable Reason for Visit Procedure/Equipment (Routine) - Incomplete Specialty Diagnoses / Procedures Referred By Contact Refer red To Contact Procedures Lenard Taylor MD Foreign Image(S) MR Extremity [address] [place], [place] [address] Referral ID Status Reason Start Date Expiration Date Visits V isits Requested Authorized [id number] Incomplete 03/26/2016 06/25/2017 1 1 Encounter Details Date Type Department Care Team Description 03/09/2016 Imaging [id number] RADIOLOGY CENTRAL FILM Lenard Traore MD LIBRARY 8100 [facility] [address] [facility]. [place], [place] [address] [place] [address] Social History Tobacco Use Types Packs/Day Years Used Date Smoking Tobacco: Never Assessed Sex Assigned at Date Recorded Not on file documented as of this encounter Plan of Treatment Not on filedocumented as of this encounter Procedures Procedure Name Priority Date/Time Associated Diagnosis Comme nts FOREIGN IMAGE(S) MR Routine 03/09/2016 12:00 AM R esults for this EXTREMITY LT CONVENTIONAL UNDERWRITER procedure are i n the results section. documented in this encounter Results Foreign Image(S) MR Extremity Lt (03/09/2016 12:00 AM CONVENTIONAL UNDERWRITER) Specimen (Source) Anatomical Location Collection Method / Collectio n Time Received Time / Laterality Volume Narrative PN POCT - 03/26/2016 8:25 AM CONVENTIONAL UNDERWRITER These outside images have been uploaded into PACS. If the results were provided, they will be located on the Me rosario tab in the patient's chart. Lenard Taylor MD RAD NON-REPORTABLES Performing Organization Address City/State/ZIP Code Phon e Number POCT PN POCT documented in this encounter Visit Diagnoses Not on filedocumented in this encounter
--- OUTSIDE RECORDS SUMMARY | 2021-10-24 11:34 | XMS_ITS | Clinical Summary ---
:1965 Author Organization [employer] [place] [address] Care Team Providers Name Role Phone Osvaldo [...] Addre ss Type Group HEALTH [employer]IN[employer] [id number] 2019-[employer]en [address] [place] [address] Care Teams Locks Inspector Relationship Specialty Start Date End Date Osvaldo Kang MD PCP - General Family Practice 11/13/201999 [place] [phone]
--- OUTSIDE RECORDS SUMMARY | 2021-10-24 11:34 | XMS_ITS | Encounter Summary ---
:1965 Author Organization [employer] Address [address] [place] [address] Care Team Providers Name Role Phone Pcp, Pt Declines MD Primary Care Provider Reason for Referral Procedure/Equipment (Routine) - Incomplete Specialty Diagnoses / Procedures Referred By Contact Refer red To Contact Diagnoses Left shoulder pain, unspecified chronicity Lenard Taylor MD Procedures XR Shoulder Lt 2+ Views [address] [place], [place] [address] Referral ID Status Reason Start Date Expiration Date Visits V isits Requested Authorized [id number] Incomplete 04/16/2016 07/16/2017 1 1 AIN ROOM SERVICE Reason for Visit Reason Comments SHOULDER PAIN Encounter Details Date Type Department Care Team Description 04/16/2016 Surgical Consult [facility] Lenard Taylor shoulder pain, DEBBIE Helms MD unspecified [address] chronicity (Primary [place], [place] Dx) [id number] Social History Tobacco Use Types Packs/Day Years [...] 108.9 kg (240 lb) 04/16/2016 3:46 PM CAPTAIN ROOM SERVICE Height 170.2 cm (5' 7) 04/16/2016 3:46 PM CAPTAIN ROOM SERVICE Body Mass Index 37.59 04/16/2016 3:46 PM CAPTAIN ROOM SERVICE documented in this encounter Progress Notes Lenard Taylor MD - 04/18/2016 11:12 AM CST NAME: KYAW SMITH MR#: [id number] CSN: [id number] AUTHENTICATING CLINICIAN: Lenard Taylor MD CONFIRM #: [...] 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 3., lives with . 4.Main hobbies include fishing and ice fishing. IMAGING: Review of MRI performed at [facility]. X-rays were ordered and independently reviewed by [...] Cantu MD JPB: C: R:04/16/16 17:35 CONFIRM#:[id number] AIN ROOM SERVICE documented in this encounter Plan of Treatment Not on filedocumented as of this encounter Results XR Shoulder Lt 2+ Views (04/16/2016 4:23 PM CAPTAIN ROOM SERVICE) Anatomical Region Laterality Modality Upper Extremity, Shoulder Digital Radiog valerie Specimen (Source) Anatomical Location Collection Method / Collectio n Time Received Time / Laterality Volume Narrative 04/19/2016 3:54 PM CAPTAIN ROOM SERVICE X-rays of the left shoulder demonstrate advanced [...] ty documented in this encounter Care Teams Chemistry Technician Relationship Specialty Start Date End Date Pcp, Benny Wood MD PCP - General 03/18/16 [place] [address] documented as of this encounter
--- OUTSIDE RECORDS SUMMARY | 2021-10-24 11:34 | XMS_ITS | Clinical Summary ---
:1965 Author Organization [facility] Address [address] [place] [address] Care Team Providers Name Role Phone Pcp, [...] for each transition of care or referral. [facility] Allergies No known active allergies Medications Medication [...] 108.9 kg (240 lb) 04/16/2016 3:46 PM WIRE DRAWING DIE MAKER Height 170.2 cm (5' 7) 04/16/2016 3:46 PM WIRE DRAWING DIE MAKER Body Mass Index 37.59 04/16/2016 3:46 PM WIRE DRAWING DIE MAKER Plan of Treatment Health Maintenance Due Date [...] Addre ss Type Group BCBS BCBS MNCARE [id number] 2016-Present [address] [address] [place] [address] Care Teams Voltage Tester Relationship Specialty Start Date End Date PcpBenny MD PCP - General 03/18/16 [place] [address]
--- OUTSIDE RECORDS SUMMARY | 2021-10-24 11:34 | XMS_ITS | Encounter Summary ---
:1965 Author Organization [employer] Address [address] [place] [address] Care Team Providers Name Role Phone Pcp, Pt Declines MD Primary Care Provider Reason for Visit Procedure/Equipment (Routine) - Incomplete Specialty Diagnoses / Procedures Referred By Contact Refer red To Contact Diagnoses Left shoulder pain, unspecified chronicity Lenard Taylor MD Procedures XR Shoulder Lt 2+ Views [address] [facility] [address] [place], [place] [address] Referral ID Status Reason Start Date Expiration Date Visits V isits Requested Authorized [id number] Incomplete 04/16/2016 07/16/2017 1 1 Encounter Details Date Type Department Care Team Description 04/16/2016 Imaging [facility] Lenard Taylor, Left shoulder pain, [address] [facility] unspecified chronicity [place], [place] [address] [address] [facility] [phone] [place] [address] (Wo rk) Social History Tobacco Use Types [...] anna marie n, Results for this VIEWS NUCLEAR CRITICALITY SAFETY ENGINEER unspecified procedure are i n chronicity the results section. documented in this encounter Results XR Shoulder Lt 2+ Views (04/16/2016 4:23 PM NUCLEAR CRITICALITY SAFETY ENGINEER) Anatomical Region Laterality Modality Upper Extremity, Shoulder Digital Radiog valerie Specimen (Source) Anatomical Location Collection Method / Collectio n Time Received Time / Laterality Volume Narrative 04/19/2016 3:54 PM NUCLEAR CRITICALITY SAFETY ENGINEER X-rays of the left shoulder demonstrate advanced [...] ty documented in this encounter Care Teams Sole Stainer Relationship Specialty Start Date End Date PcpBenny MD PCP - General 03/18/16 [place], [place] [address] documented as of this encounter
--- OUTSIDE RECORDS SUMMARY | 2021-10-24 11:34 | XMS_ITS | Encounter Summary ---
[...] ? COVID-19 counseling* ? COVID-19 QUARANTINE GUIDANCE [facility] Discussion Note: None recorded. Plan of Care Patient Instructions RTC as needed. Reminders Provider Appointments None recorded. ? ? Lab Rapid SARS CoV 2 Ag, QL IA, 08/31/2021 [facility] Respiratory Specimen [place] Referral None recorded. ? ? Procedures None [...] Compcare 2 Ag, QL IA, passage) Ur [facility] Care Respiratory [place]: Specimen [address] , [place] Allergies Code Code System Name Reaction Severity [...] JARVIS Messina: [address], [place] [address], Ph. History of Present Illness ? COVID-19 [...]
[2021-10-24 13:14] LABS: Chloride* 98 mmol/L (96-114); Sodium* 136 mmol/L (135-149)
[2021-10-24 13:17] LABS: Blood Urea Nitrogen* 10 mg/dL (7-30); Carbon Dioxide* 26 mmol/L (20-32); Creatinine* 0.8 mg/dL (0.5-1.5); Estimated Glomerular Filt Rate 105 ml/min
[2021-10-24 13:18] LABS: Calcium* 10.6 mg/dL (8.4-10.6); Glucose* 103 mg/dL (60-115)
== END 2021-10-24 11:24 | disposition home or self-care (01) ==
LOC: NFLDREF 11:24
PROVIDERS: PCP Family Medicine; Visit Provider Family Medicine
DX: Z01.818 Encounter for other preprocedural examination (principal); Z20.822 Contact with and (suspected) exposure to COVID-19
CPT/HCPCS: 80048; 87635

== ENCOUNTER 2021-10-26 09:45 | Day surgery (SDC) | payer OTHER, SELFPAY ==
[2021-10-26] VITALS (12 sets, daily range): BP systolic 124–180; BP diastolic 68–107; PULSE 60–94; RESP 12–20; TEMP 36.3–36.8; O2SAT 93–98; BMI 32.5
[2021-10-26] MEDS: BUPIVACAINE 0.5%/EPINEPHRINE 0.9 MG (30.9 ML) INJECTION (07:00)
[2021-10-26] MEDS: OXYMETAZOLINE 0.05% NASAL SPRAY 2 SPRAY NOSTRIL-B (10:00)
[2021-10-26] MEDS: LACTATED RINGERS 1000 ML 1,000 ML 100 ML IV ×2 (10:30→11:53)
[2021-10-26] MEDS: MUPIROCIN 1 GM PACKET 1 APPLIC TOPICAL (11:27)
[2021-10-26] MEDS: COCAINE HCL 4 % 4 ML SOLUTION NOSTRIL-B (11:28)
[2021-10-26] MEDS: AYR SALINE NASAL GEL 1 APPLIC NOSTRIL-B (11:29)
--- NOTE | 2021-10-26 11:36 | W.ANESCHARGE ---
Anesthesia Charges Start Date/Time Anesthesia Start Date: 10/26/21 Anesthesia Start Time: 11:03 Stop Date/Time Anesthesia Stop Date: 10/26/21 Anesthesia Stop Time: 11:58 Summary Emergency: No
--- NOTE | 2021-10-26 11:57 | W.PM.ENTPROC ---
Procedure Note Date of procedure: 10/26/21 Procedure: Preop diagnosis is opacification left frontal ethmoid maxillary and sphenoid sinuses, deviated septum nasal obstruction chronic rhinosinusitis Postoperative diagnosis same Procedure septoplasty, endoscopic left frontal sinusotomy complete ethmoidectomy maxillary antrostomy with tissue removal and sphenoidotomy Under general endotracheal anesthesia the patient was prepped and draped in usual fashion nose injected and decongested. A right hemitransfixion incision was made left anterior and posterior tunnels were created. A vertical incision was made to the cartilage and a right posterior tunnel created. The posterior deflected portions of septal bone resected a large piece was trimmed and returned to the posterior intraseptal space and the hemitransfixion closed with 2 4-0 chromic sutures. The right middle turbinate was outfractured Remainder procedure was done with the of assistance of image guidance and 0 degree endoscope. The inferior quarter of the uncinate process was taken down and maxillary sinus ostia was identified was completely occluded by polypoid material which was removed with an upbiting ethmoid forceps. A large amount of pus and inspissated mucus was removed from the sinus with a curved suction. The ethmoid bulla was taken down with a straight ethmoid forceps and dissection carried out in an anterior to posterior direction removing a small to moderate amount of polypoid tissue. The frontal recess was then explored and 2 small polyps were removed which resulted in purulent drainage coming from the frontal sinus. All specimens were sent to pathology. Silastic stents were secured with 3-0 nylon. A Merocel pack was trimmed lengthwise and both sides were placed on the left side the nose as well as a positive pack. The patient tolerated procedure well was taken recovery in satisfactory condition. Blood loss was less than 50 mL. There were no complications. Surgeon: Darvin Reid MD
--- NOTE | 2021-10-26 12:06 | SUR.OPER ---
COOLING ROOM ATTENDANT ADMIN 10mg LABETALOL FOR HIGH BP AT 1158.
--- NOTE | 2021-10-26 12:07 | W.ANESCHARGE ---
Anesthesia Charges Start Date/Time Anesthesia Start Date: 10/26/21 Anesthesia Start Time: 11:03 Stop Date/Time Anesthesia Stop Date: 10/26/21 Anesthesia Stop Time: 11:58 Summary Emergency: No
[2021-10-26] MEDS: LACTATED RINGERS 1000 ML 1,000 ML 35 ML IV (12:14)
--- NOTE | 2021-10-26 12:21 | SUR.PHASEI ---
VSS, TRANSFER PT TO SDS VIA CART.
[2021-10-26] MEDS: OXYCODONE 5 MG TABLET PO (12:47)
== END 2021-10-26 13:30 | disposition home or self-care (01) ==
PROVIDERS: PCP Family Medicine; Visit Provider Otolaryngology
PROC: (CPT 31231; principal; 2021-10-26 11:00)
DX: J34.2 Deviated nasal septum (principal); J32.1 Chronic frontal sinusitis; J32.2 Chronic ethmoidal sinusitis; J32.0 Chronic maxillary sinusitis; J32.3 Chronic sphenoidal sinusitis; J33.8 Other polyp of sinus
CPT/HCPCS: 30520; 31259; 31267; 31253; 00160; 88305; 88311; A9270; J1100; J2405; J2704; J3010; J7120

== ENCOUNTER 2021-11-13 09:20 | Outpatient (CLI) | payer OTHER, SELFPAY ==
--- OUTSIDE RECORDS SUMMARY | 2021-11-13 09:43 | XMS_ITS | Clinical Summary ---
:1965 Author Organization [employer] [facility] [place] [address] Care Team Providers Name Role Phone Osvaldo [...] cervical Active Problems No known active problems Encounters Date Type Specialty Care Team Description 10/27/2021 Lab Requisition Darvin Reid MD from Last 3 Months Social History Tobacco Use Types Packs/Day Years [...] 2) 02/10/2016 Influenza for age 50-64 10/18/2021 Procedures Procedure Name Priority Date/Time Associated Diagnosis Comme nts LAB TRACKING EVENT Routine 10/26/2021 11:40 AM CDT PATH TISSUE EXAM Routine 10/26/2021 11:40 AM Resu lts for this CDT procedure are i n the results section. from Last 3 Months Results LAB TRACKING EVENT (10/26/2021 11:40 AM CDT) Specimen Anatomical Collection Method Collection Time Receive d Time (Source) Location / / Volume Laterality Other (Other) Client Collect / 10/26/2021 11:40 2021 7:58 Unknown AM CDT AM CDT Darvin Reid MD LAB BILL ONLY Performing Organization Address City/State/ZIP Code Phon e Number [facility] [address] [place] [address] LABORATORY-CENTRAL 2000 LABORATORY PATH TISSUE EXAM (10/26/2021 11:40 AM CDT) Component Value Ref Test Analysis Performed At [facility] gist Range Method Time Signature Case Report Pathology Report ?Case: [id number] ? 10/30/2021 [facility] Authorizing Provider: ??Darvin Fam, ??Collected: ? 10/26/2021 1140 ? 2:59 PM CDT HEALTH ? MD ? LABORATORY-C Ordering Location: ? [facility] ?Received: ?10/29/2021 0842 ? EN TRAL Pathologist: ? Kallie Aceves MD ? LABORATORY Specimen: ?Left Sinus Et hmoid ? Final A) PARANASAL SINUSES, LEFT ETHMOID, FRONTAL, ANTRAL, E XCISION: 10/30/2021 [facility] Electronically Diagnosis 1. Chronic inflammation 2:59 PM CDT HEAL TH signed by Ketan, 2. Fragments of benign sinonasal polyp LABORATORY-C Kallie Davila MD on 3. Negative for neoplasm ?? EN TRAL 10/30/2021 at LABORATORY 2:59 PM Clinical Not provided 10/30/2021 [facility] Information 2:59 PM CDT HEALTH LABORATORY-C ENTRAL LABORATORY Gross A) Received in formalin, lab eled with the patient's name and ethmoid left, frontal left, antral left, is a 2.5 x 2.3 x 0.6 cm aggregate of multiple pink-castro soft tissues, admixed with small fragments [facility] Description of bone. ??The tissue is ent irely submitted in 2 cassettes (cassette 2 has undergone decalcification). 2:59 PM [facility] LABORATORY-C Time and date in formalin: 1140 on 10/26/2021 ENTRAL LABORATORY TRB 10/29/2021 Microscopic The final 10/30/2021 [facility] Description diagnosis is 2:59 PM [facility] based on LABORATORY-C microscopic ENTRAL examination of LABORATORY appropriate sections of all specimens. Additional 10/30/2021 [facility] Information Interpreted at [facility] Central Laboratory - [address] [place] [address] [facility], [place] [address] 2:59 PM [facility] LABORATORY-C ENTRAL LABORATORY Specimen Anatomical Collection Method Collection Time Receive d Time (Source) Location / / Volume Laterality Other (Left 10/26/2021 11:40 10/29/2021 8:42 Sinus Ethmoid) AM CDT AM CDT Darvin Reid MD PATHOLOGY/CYTOLOGY Performing Organization Address City/State/ZIP Code Phon e Number [facility] [employer] [address] [place] [address] [place] [address] LABORATORY-CENTRAL 2000 LABORATORY from Last 3 Months Insurance Payer Benefit Plan / Subscriber ID Effective Dates Phone Addre ss Type [facility] [employer] [id number] 2019-Presen [address] [place] [address] Care Teams Orthopedics Teacher Relationship Specialty Start Date End Date Osvaldo Kang MD PCP - General Family Practice 11/13/201999 [place] [phone]
--- OUTSIDE RECORDS SUMMARY | 2021-11-13 09:44 | XMS_ITS | Encounter Summary ---
:1965 Author Organization [employer] Address [address] [place] [address] Care Team Providers Name Role Phone Pcp, Pt Declines MD Primary Care Provider Reason for Visit Procedure/Equipment (Routine) - Incomplete Specialty Diagnoses / Procedures Referred By Contact Refer red To Contact Diagnoses Left shoulder pain, unspecified chronicity Lenard Taylor MD Procedures XR Shoulder Lt 2+ Views [address] [facility] [address] [place], [place] [address] Referral ID Status Reason Start Date Expiration Date Visits V isits Requested Authorized [id number] Incomplete 04/16/2016 07/16/2017 1 1 Encounter Details Date Type Department Care Team Description 04/16/2016 Imaging [facility] Lenard Taylor, Left shoulder pain, [address] [facility] unspecified chronicity [place], [place] [address] [address] [facility] [phone] [place] [address] (Wo rk) Social History Tobacco Use Types [...] anna marie n, Results for this VIEWS TELESCOPE OPERATOR unspecified procedure are i n chronicity the results section. documented in this encounter Results XR Shoulder Lt 2+ Views (04/16/2016 4:23 PM TELESCOPE OPERATOR) Anatomical Region Laterality Modality Upper Extremity, Shoulder Digital Radiog valerie Specimen (Source) Anatomical Location Collection Method / Collectio n Time Received Time / Laterality Volume Narrative 04/19/2016 3:54 PM TELESCOPE OPERATOR X-rays of the left shoulder demonstrate [...] ty documented in this encounter Care Teams Shuttle Truck Driver Relationship Specialty Start Date End Date PcpBenny MD PCP - General 03/18/16 [place], [place] [address] documented as of this encounter
--- OUTSIDE RECORDS SUMMARY | 2021-11-13 09:44 | XMS_ITS | Encounter Summary ---
:1965 Author Organization [employer] Address [address] [place] [address] Care Team Providers Name Role Phone Pcp, Pt Declines MD Primary Care Provider Reason for Referral Procedure/Equipment (Routine) - Incomplete Specialty Diagnoses / Procedures Referred By Contact Refer red To Contact Diagnoses Left shoulder pain, unspecified chronicity Lenard Taylor MD Procedures XR Shoulder Lt 2+ Views [address] [place], [place] [address] Referral ID Status Reason Start Date Expiration Date Visits V isits Requested Authorized [id number] Incomplete 04/16/2016 07/16/2017 1 1 GER PERSONNEL SELECTION Reason for Visit Reason Comments SHOULDER PAIN Encounter Details Date Type Department Care Team Description 04/16/2016 Surgical Consult [facility] Lenard Taylor shoulder pain, DEBBIE Helms MD unspecified [address] chronicity (Primary [place], [place] Dx) [id number] Social History Tobacco Use Types Packs/Day Years [...] 108.9 kg (240 lb) 04/16/2016 3:46 PM MANAGER PERSONNEL SELECTION Height 170.2 cm (5' 7) 04/16/2016 3:46 PM MANAGER PERSONNEL SELECTION Body Mass Index 37.59 04/16/2016 3:46 PM MANAGER PERSONNEL SELECTION documented in this encounter Progress Notes Lenard Taylor MD - 04/18/2016 11:12 AM CST NAME: KYWA SMITH MR#: [id number] CSN: [id number] AUTHENTICATING CLINICIAN: Lenard Taylor MD CONFIRM #: [...] 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 3., lives with . 4.Main hobbies include fishing and ice fishing. IMAGING: Review of MRI performed at [facility]. X-rays were ordered and independently reviewed [...] Cantu MD JPB: C: R:04/16/16 17:35 CONFIRM#:92 GER PERSONNEL SELECTION documented in this encounter Plan of Treatment Not on filedocumented as of this encounter Results XR Shoulder Lt 2+ Views (04/16/2016 4:23 PM MANAGER PERSONNEL SELECTION) Anatomical Region Laterality Modality Upper Extremity, Shoulder Digital Radiog valerie Specimen (Source) Anatomical Location Collection Method / Collectio n Time Received Time / Laterality Volume Narrative 04/19/2016 3:54 PM MANAGER PERSONNEL SELECTION X-rays of the left shoulder demonstrate advanced [...] ty documented in this encounter Care Teams Change Number Operator Relationship Specialty Start Date End Date Pcp, Benny Wood MD PCP - General 03/18/16 [place] [address] documented as of this encounter
--- OUTSIDE RECORDS SUMMARY | 2021-11-13 09:44 | XMS_ITS | Encounter Summary ---
[...] ? COVID-19 counseling* ? COVID-[address] [facility] Discussion Note: None recorded. Plan of Care Patient Instructions RTC as needed. Reminders Provider Appointments None recorded. ? ? Lab Rapid SARS CoV 2 Ag, QL [place], 08/31/2021 [facility] Respiratory Specimen [place] Referral None recorded. ? ? Procedures None [...] Compcare 2 Ag, QL [place], passage) Ur [facility] Care Respiratory [place]: Specimen [address] , [place] Allergies Code Code System Name Reaction Severity [...] JARVIS Messina: [address], [place] [address], Ph. History of Present Illness ? COVID-19 [...]
--- OUTSIDE RECORDS SUMMARY | 2021-11-13 09:44 | XMS_ITS ---
[...] Compcare 2 Ag, QL IA, passage) Ur [facility] Care Respiratory [place]: Specimen [address] , [place] 01/01/2021 SARS CoV 2 RNA, Nose (nasal ? Result positive ? ? Compcare QL, RENNY+probe, passage) Urgent Care Nose [place]: [address] , [place] Past Encounters 08/31/2021 Exposure to SARS-CoV-2 JARVIS Messina: [address], [place] [address], Ph. 05/18/2021 Acute Sinusitis JARVIS Messina: [address], [place] [address], Ph. 05/07/2021 Acute Sinusitis Yuan Schulte PA: [address], [place] [address], Ph. 02/26/2021 Acute Sinusitis JARVIS Messina: [address], [place] [address], Ph. 01/01/2021 Exposure to SARS-CoV-2 JARVIS Messina: [address], [place] [address], Ph. Social History Tobacco Smoking Status Heavy [...]
--- OUTSIDE RECORDS SUMMARY | 2021-11-13 09:44 | XMS_ITS | Clinical Summary ---
:1965 Author Organization [facility] Address [address] [place] [address] Care Team Providers Name Role Phone Pcp, [...] for each transition of care or referral. [facility] Allergies No known active allergies Medications Medication [...] 108.9 kg (240 lb) 04/16/2016 3:46 PM MIX HOUSE OPERATOR Height 170.2 cm (5' 7) 04/16/2016 3:46 PM MIX HOUSE OPERATOR Body Mass Index 37.59 04/16/2016 3:46 PM MIX HOUSE OPERATOR Plan of Treatment Health Maintenance Due Date [...] Addre ss Type Group BCBS BCBS MNCARE [id number] 2016-Present [address] [address] [place] [address] Care Teams Technology Infusion Specialist Relationship Specialty Start Date End Date PcpBenny MD PCP - General 03/18/16 [place] [address]
--- OUTSIDE RECORDS SUMMARY | 2021-11-13 09:44 | XMS_ITS | Encounter Summary ---
:1965 Author Organization [facility] Address [address] [place] [address] Care Team Providers Name Role Phone Unavailable Primary Care Provider Unavailable Reason for Visit Procedure/Equipment (Routine) - Incomplete Specialty Diagnoses / Procedures Referred By Contact Refer red To Contact Procedures Lenard Taylor MD Foreign Image(S) MR Extremity [address] Lt [place], [place] [address] Referral ID Status Reason Start Date Expiration Date Visits V isits Requested Authorized [id number] Incomplete 03/26/2016 06/25/2017 1 1 Encounter Details Date Type Department Care Team Description 03/09/2016 Imaging [id number] RADIOLOGY CENTRAL FILM Lenard Traore MD LIBRARY [address] [facility] [address] [facility]. [place], [place] [address] [place] [address] Social History Tobacco Use Types Packs/Day Years Used Date Smoking Tobacco: Never Assessed Sex Assigned at Date Recorded Not on file documented as of this encounter Plan of Treatment Not on filedocumented as of this encounter Procedures Procedure Name Priority Date/Time Associated Diagnosis Comme nts FOREIGN IMAGE(S) MR Routine 03/09/2016 12:00 AM R esults for this EXTREMITY LT FIELD SEISMOLOGIST procedure are i n the results section. documented in this encounter Results Foreign Image(S) MR Extremity Lt (03/09/2016 12:00 AM FIELD SEISMOLOGIST) Specimen (Source) Anatomical Location Collection Method / Collectio n Time Received Time / Laterality Volume Narrative PN POCT - 03/26/2016 8:25 AM FIELD SEISMOLOGIST These outside images have been uploaded into PACS. If the results were provided, they will be located on the Me rosario tab in the patient's chart. Lenard Taylor MD RAD NON-REPORTABLES Performing Organization Address City/State/ZIP Code Phon e Number POCT PN POCT documented in this encounter Visit Diagnoses Not on filedocumented in this encounter
[2021-11-13 15:57] LABS: SARS PCR* Negative SARS-CoV-2 (Negative)
== END 2021-11-13 09:21 | disposition home or self-care (01) ==
LOC: FBOREF 09:21
PROVIDERS: PCP Family Medicine; Visit Provider Orthopaedic Surgery
DX: Z11.52 Encounter for screening for COVID-19 (principal)
CPT/HCPCS: 87635

== ENCOUNTER 2021-11-15 07:15 | Day surgery (SDC) | payer OTHER, SELFPAY ==
[2021-11-15] VITALS (25 sets, daily range): BP systolic 116–161; BP diastolic 73–99; PULSE 61–89; RESP 16–18; TEMP 36–36.9; O2SAT 88–99; BMI 32.8
[2021-11-15] MEDS: ACETAMINOPHEN 500 MG TABLET 1000 MG PO ×2 (07:23→14:20)
[2021-11-15] MEDS: CELECOXIB 200 MG CAPSULE PO (07:23)
[2021-11-15] MEDS: OXYCODONE (CR) 10 MG TAB.ER.12H PO (07:23)
[2021-11-15] MEDS: LACTATED RINGERS 1000 ML 1,000 ML 100 ML IV ×2 (08:10→10:05)
[2021-11-15] MEDS: SODIUM CHLORIDE 0.9 % (FLUSH) 10 ML SYRINGE IVF (08:10)
--- NOTE | 2021-11-15 08:36 | SUR.PREOP ---
TIME?OUT:?0836 PT/RN/MDA?VERIFICATION?OF?SURGICAL?SITE,?PROCEDURE,?AND?CONSENT OBTAINED?PRIOR?TO?INVASIVE?PROCEDURE.
[2021-11-15] MEDS: fentaNYL 100 MCG/2 ML inj IVP (08:37)
[2021-11-15] MEDS: MIDAZOLAM HCL 1 MG/ML inj IVP (08:37)
--- NOTE | 2021-11-15 09:55 | W.ANESCHARGE ---
Anesthesia Charges Start Date/Time Anesthesia Start Date: 11/15/21 Anesthesia Start Time: 09:09 Stop Date/Time Anesthesia Stop Date: 11/15/21 Anesthesia Stop Time: 12:17 Summary Emergency: No
--- NOTE | 2021-11-15 10:30 | W.PM.NB ---
Nerve Block Nerve Block Date Seen: 11/15/21 Type of block requested by surgeon for post-operative analgesia: interscalene Side: left Time out performed: Yes Verification of patient name: Yes Verification of date of : Yes Site marking: site marked Name of person performing procedure: Aris Song, if any: Jean-Paul Continuous monitoring Was continuous monitoring of O2 sat, B/P, monitor technician, recorded every 15 minutes?: Yes Procedure Checklist: sterile prep, needles and gloves Ultrasound guided. Images saved: Yes Medications given in 5ml increments after negative aspiration: Marcaine %: 0.5 mL: 20 Needle gauge: 22 Decadron (mg): 10 Precedex (mcg): 25 Patient tolerated procedure well: Yes Block Charges Block Charge (with Pro Fee): Brachial Plexus Use of Ultrasound Machine for Block: Yes- US Guidance/pain block
--- NOTE | 2021-11-15 11:43 | CRLHL7_ITS ---
For Patients: As a result of the Cures Act, medical imaging exams and procedure reports are released immediately into your electronic medical record. You may view this report before your referring provider. If you have questions, please contact your health care provider. Indication: Postop Technique: Two views left shoulder Findings/Impression: Hardware from a left total shoulder arthroplasty is in satisfactory position. Bone alignment is normal. No sign of acute fracture. Postop changes are within normal limits. Dictated by Alec Winkler MD @ 11/15/2021 12:49:17 PM (Electronically Signed)
--- NOTE | 2021-11-15 11:45 | P.ORPRC_ITS ---
Procedure Note Date of procedure: 11/15/21 Procedure: SURGEON: Carl Sandoval MD DEMAND GENERATOR MANAGER: Nurys Bingham PA-C, XIOMARA Lamas PREOPERATIVE DIAGNOSIS: Left upper extremity end-stage glenohumeral joint osteoarthritis POSTOPERATIVE DIAGNOSIS: Left upper extremity end-stage glenohumeral joint osteoarthritis NAME OF OPERATION: Left upper extremity total shoulder arthroplasty ANESTHESIA: General endotracheal ESTIMATED BLOOD LOSS: 100 mL COMPLICATIONS: None SPECIMENS: None DRAINS: None PREOPERATIVE ANTIBIOTICS: Ancef 2 grams IMPLANTS: 1. Tornier 40 medium pegged glenoid component 2. Tornier 5B humeral stem 3. 48 mm x 60 mm, low offset humeral head INDICATIONS: The patient is a 56-year-old male with a longstanding history of severe, unrelenting left shoulder pain secondary to end-stage glenohumeral joint osteoarthritis. Despite appropriate nonoperative management, including activity modification, anti-inflammatories, oraa-lkc-zeyjqae pain medication, physical therapy, and injections they continue to have pain and disability. Operative intervention was offered. The risks, benefits and expected outcomes were discussed in detail. These included but were not limited to: Infection, bleeding, injury to blood vessel or nerve, venous thromboembolism. All questions were answered to their satisfaction. Use of an assistant tennis coach was necessary throughout the case for patient positioning and safety, soft tissue retraction, and closure. PROCEDURE: General anesthesia was administered. The patient was placed in the lazy beach chair position on the operating room table. The left upper extremity was prepped and draped in the usual sterile fashion. A standard deltopectoral incision was made. Subcutaneous dissection was taken with electrocautery to the deltopectoral interval. The cephalic vein was mobilized, lateral branches were cauterized. We bluntly entered the del topectoral interval. We freed up the deltoid. The upper 1/3 of the insertion of the pectoralis was divided with cautery. The static retractor was placed. The clavipectoral fascia and CA ligament were divided. The circumflex vessels were controlled with electrocautery. The biceps was dissected out of the bicipital groove, was tagged with a #2 FiberWire suture and divided proximally. Two fiberWire sutures were placed in the subscapularis. The subscap was subperiosteally elevated off of the lesser tuberosity. The humeral head was delivered into the wound. The intramedullary humeral cutting guide was placed. We made the cut at the anatomic neck, in 20?of retroversion. Humeral sounds were used. Broaches were used until rotational stability was achieved. The cut protector was placed. Attention was then turned to the glenoid. Hohmann retractors were placed posteriorly. The labrum and biceps stump were sharply debrided. The origin of the inferior glenohumeral ligaments were subperiosteally released off of the glenoid. The glenoid appeared to be a 40 medium. The drill guide was placed centrally. The guide pin was placed. The reamer was used to concentric bone. The central drill hole was made. The drill guide was placed and single superior and 2 inferior drill holes were made. The trial glenoid component was placed and was an excellent fit. The glenoid was irrigated with normal saline then thoroughly dried. Cement was placed in the superior and inferior drill holes. The 40 medium pegged glenoid component was placed and was impacted. This was an excellent fit. Attention then returned to the humerus. The trial humeral head was placed. We reduced the shoulder and took it through a range of motion. It was found to be stable with appropriate soft tissue tension. Trial humeral components were removed. We placed 2 #2 FiberWire sutures through the lesser tuberosity for subsequent subscap repair. The biceps was tenodesed distal to the groove with sutures placed through drill holes, into the canal. We assembled the humeral component on the back table and impacted it into the canal. This had excellent purchase. The shoulder was reduced and was found to have appropriate soft tissue tension. We did a 3 min dilute Betadine solution soak. We irrigated the wound with 3 L of normal saline via pulse lavage. We repaired the subscapularis to the lesser tuberosity with our previously placed FiberWire sutures. The rotator interval was repaired with a #2 FiberWire suture. The deltopectoral interval was loosely reapproximated with an 0 Vicryl in an interrupted ygaebl-gc-glkox fashion. Subcutaneous tissues were closed with the 2-0 Vicryl and a running 3-0 Monocryl suture. The skin was sealed with glue. A dry dressing and sling were applied Sponge and needle counts were correct x2. The patient tolerated the procedure well, there were no apparent complications. They were awakened and extubated in the operating room, taken to the postanesthesia care unit in satisfactory condition. PLAN: The patient will be mobilized with physical therapy. The sling will be used for 6 weeks postoperatively. Active range of motion in forward flexion and abduction as tolerates. No external rotation greater than 0? for 6 weeks postoperatively. They will to be discharged to home once medically appropriate.
--- NOTE | 2021-11-15 12:23 | W.ANESCHARGE ---
Anesthesia Charges Start Date/Time Anesthesia Start Date: 11/15/21 Anesthesia Start Time: 09:09 Stop Date/Time Anesthesia Stop Date: 11/15/21 Anesthesia Stop Time: 12:17 Summary Emergency: No
[2021-11-15] MEDS: fentaNYL 100 MCG/2 ML inj 50 MCG IVP ×2 (12:32→12:39)
[2021-11-15] MEDS: LACTATED RINGERS 1000 ML 1,000 ML 75 ML IV (14:21)
--- NOTE | 2021-11-15 15:06 | PM.IMCN1 ---
Date of Consult Patient: [facility] Patient Consult date: 11/15/21 Primary Care Provider: Osvaldo Kang MD Consult Narrative Reason for consult: Medical management of comorbidities Narrative: Matthew Medellin is a 56 year old male presented to the hospital today for an elective left total shoulder with Dr. Sandoval of Orthopedic surgery. Surgery went well without any surgical or anesthetic complications. Patient is a history of hypertension, hyperlipidemia, recurrent sinusitis (recent ENT surgery), and GERD. He is taking his daily medications appropriately. No history of surgical or anesthetic complications, no history of blood clots. Saw PCP (Dr. Kang) for preoperative H&P, no concerns identified at that time. Patient lives with independently. He is retired. He smokes 10-12 cigarettes per day, willing to trial a nicotine patch if needed. He has 1-2 beers most nights of the week without any concerns for withdrawal. Last alcohol use 2 days ago. Review of Systems Status of ROS: Reports: 10 or more systems reviewed and unremarkable except as noted in History and below PFSH PFSH Medical History GERD (gastroesophageal reflux disease) Tobacco use (04/03/09) Surgical History (Updated 11/14/21 @ 08:33 by Cara Alvarado, BHAVNA) History of nasal septoplasty (~10/26/21) Status post total replacement of left shoulder Family History (Updated 10/30/21 @ 09:26 by Sirena Parks, BHAVNA) Brother High blood pressure Father High blood pressure Cancer Social History (Updated 10/24/21 @ 11:16 by Osvaldo Kang MD) Narrative: SOCIAL HISTORY: He is . One child. 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 He is sexually active. Exercises mainly in the course of work. He enjoys camping, fishing and actually built a camper/ice house. Lives on [facility]. HABITS: He smokes 10-12 cigarettes per day. No interest in quitting. Alcohol use is 12 drinks per week. 1-2 drinks per night. No recreational drug use. FAMILY HISTORY: Father of CA (unknown type). Mom alive and well. Siblings well. Kids Well. Smoking Status: Current every day smoker What tobacco products do you use: cigarettes Years smoked: 20 Do you use any of these nicotine containing products: None How often do you have a drink containing alcohol: 4 or more times a week Alcohol type: beer How many standard drinks containing alcohol do you have on a typical day: 3 or 4 How often do you have six or more drinks on one occasion: Daily or almost daily AUDIT-C Alcohol total score: 9 Non-prescribed substance use: denies use Caffeine: No Meds Home Medications and Allergies Home Medications Medication Instructions Recorded Confirmed Type omeprazole 20 mg capsule,delayed 20 mg PO DAILY 09/26/21 11/15/21 History release atorvastatin 80 mg tablet 80 mg PO .Bedtime 10/24/21 11/15/21 History acetaminophen 650 mg 650 mg PO Q12H PRN 11/15/21 11/15/21 History tablet,extended release (8HR Muscle Aches-Pain) calcium carbonate 600 mg calcium 600 mg PO DAILY 11/15/21 11/15/21 History (1,500 mg) tablet Home Medication Comments: Patient also on amlodipine, chlorthalidone, and Metoprolol. Took all home medications at 3am on 11/15 preoperatively. Allergies Allergy/AdvReac Type Severity Reaction Status Date / Time diclofenac Allergy Verified 11/15/21 07:19 ezetimibe Allergy Verified 11/15/21 07:19 misoprostol Allergy Cramping Verified 11/15/21 07:19 of the Muscles rosuvastatin Allergy Cramping Verified 11/15/21 07:19 of the Muscles tamsulosin Allergy Cramping Verified 11/15/21 07:19 of the Muscles Exam Narrative: Exam Narrative: GEN: Alert and oriented, speaking in full sentences HEENT: Normal external ears, EOMIs bilaterally, no scleral icterus CV: RRR, No concerning murmurs, rubs, or gallops R: LCTA bilaterally without concerning wheezing, rales, or rhonchi Ext: wwp, no concerning edema, wearing Baldo hose, left shoulder in sling with normal peripheral pulses Skin: No concerning skin lesions or rashes on exposed skin Neuro: Nonfocal Psych: Appropriate Const: Vital Signs, click to edit/add: Vital Signs - 24 hr 11/15/21 08:10 11/15/21 08:36 11/15/21 09:00 Temperature 98.5 F Pulse Rate 82 61 66 Pulse Rate [Left P ulse Oximeter] Respiratory Rate 16 16 16 Blood Pressure 161/99 H 151/80 H 126/77 Blood Pressure [Ri ght Arm] Pulse Oximetry 96 99 99 Oxygen Delivery Me thod Room Air Nasal Cannula Nasal Cannula Oxygen Flow Rate 3 3 11/15/21 08:40 11/15/21 08:45 11/15/21 08:50 Temperature Pulse Rate 64 71 70 Pulse Rate [Left P ulse Oximeter] Respiratory Rate 16 16 16 Blood Pressure 130/78 134/86 138/90 H Blood Pressure [Ri ght Arm] Pulse Oximetry 99 99 99 Oxygen Delivery Me thod Nasal Cannula Nasal Cannula Nasal Cannula Oxygen Flow Rate 3 3 3 11/15/21 12:13 11/15/21 12:15 11/15/21 12:41 Temperature 97.2 F L 97.2 F L Pulse Rate 82 89 63 Pulse Rate [Left P ulse Oximeter] Respiratory Rate 16 16 16 Blood Pressure 133/85 137/79 129/78 Blood Pressure [Ri ght Arm] Pulse Oximetry 95 88 95 Oxygen Delivery Me thod Room Air Room Air Nasal Cannula Oxygen Flow Rate 3 11/15/21 12:44 11/15/21 12:20 11/15/21 12:25 Temperature 97.9 F Pulse Rate 70 78 78 Pulse Rate [Left P ulse Oximeter] Respiratory Rate 16 16 16 Blood Pressure 127/86 135/78 126/82 Blood Pressure [Ri ght Arm] Pulse Oximetry 96 95 95 Oxygen Delivery Me thod Nasal Cannula Nasal Cannula Nasal Cannula Oxygen Flow Rate 3 3 3 11/15/21 12:30 11/15/21 12:35 11/15/21 13:16 Temperature 97.9 F 97.9 F Pulse Rate 74 66 75 Pulse Rate [Left P ulse Oximeter] Respiratory Rate 16 16 16 Blood Pressure 133/86 134/86 Blood Pressure [Ri ght Arm] 135/85 Pulse Oximetry 95 95 Oxygen Delivery Me thod Nasal Cannula Nasal Cannula Room Air Oxygen Flow Rate 3 3 3 11/15/21 13:05 11/15/21 13:15 11/15/21 13:30 Temperature 97.9 F 96.9 F L 96.9 F L Pulse Rate Pulse Rate [Left P ulse Oximeter] 74 74 Respiratory Rate 16 18 18 Blood Pressure Blood Pressure [Ri ght Arm] 135/85 129/90 H 128/91 H Pulse Oximetry 96 96 95 Oxygen Delivery Me thod Room Air Room Air Room Air Oxygen Flow Rate 3 3 3 11/15/21 13:59 11/15/21 14:00 Temperature 96.8 F L 97 F L Pulse Rate Pulse Rate [Left P ulse Oximeter] 73 87 Respiratory Rate 18 18 Blood Pressure Blood Pressure [Ri ght Arm] 139/82 137/78 Pulse Oximetry 91 96 Oxygen Delivery Me thod Room Air Room Air Oxygen Flow Rate 3 3 Assessment and Plan Assessment and plan (1) Osteoarthritis of left shoulder: Status: Acute (2) Hypertension: Status: Acute (3) Hyperlipidemia: Status: Acute Plan Pain management and prophylaxis per orthopedic surgery team. Continue home medications for above-mentioned comorbidities. Hospitalist team will follow patient throughout stay.
[2021-11-15] MEDS: CEFAZOLIN 2 GM in 0.9 % SODIUM CHLORIDE Mini-bag 100 ML IVPB (17:04)
--- NOTE | 2021-11-15 18:05 | PC.NURSE ---
Patient arrived unit the unit from the recovery room at 1300. Conscious, alert and oriented on arrival. V/S stable as per chart. Dressing appeared clean and dry, pain rated at 3/10 and ice pack was applied. IV Ringers lactate was infusing on arrival. Incentive spirometer was stated an hour after arrival. Patient made to sit at the side of bed and dangle leg and visit to the washroom offered about 3 hours after arrival. Patient showed significant improvement in condition. Requested if he can be discharged. MD informed and ordered discharge when patient is able to urinate and IV Cefazolin 2g given. Patient had about 500ml of clear urine and IV Cefazolin administered before 1800. Discharge documentation completed and education regarding medications, follow up, home management of condition and diet completed. Patient and left the facility at 1800.
== END 2021-11-15 18:00 | disposition home or self-care (01) ==
LOC: OR 07:15 → MEDSURG 07:18
PROVIDERS: PCP Family Medicine; Visit Provider Orthopaedic Surgery
PROC: 0RRJ0JZ Replacement of Right Shoulder Joint with Synthetic Substitute, Open Approach (ICD-10-PCS; CPT 23472; principal; 2021-11-15 09:00)
DX: M19.012 Primary osteoarthritis, left shoulder (principal); I10 Essential (primary) hypertension; E78.5 Hyperlipidemia, unspecified; K21.9 Gastro-esophageal reflux disease without esophagitis; F17.210 Nicotine dependence, cigarettes, uncomplicated
CPT/HCPCS: 23472; 01638; 64415; 73030; 76942; A9270; C1776; J0330; J0690; J1100; J2250; J2405; J2704; J3010; J3490; J7120

== ENCOUNTER 2022-01-11 09:26 | Outpatient (CLI) | payer OTHER, SELFPAY ==
--- OUTSIDE RECORDS SUMMARY | 2022-01-11 07:33 | XMS_ITS | Encounter Summary ---
:1965 Author Organization [facility] Address [address] [place] [address] Care Team Providers Name Role Phone Pcp, Pt Declines MD Primary Care Provider Reason for Referral Procedure/Equipment (Routine) - Incomplete Specialty Diagnoses / Procedures Referred By Contact Refer red To Contact Diagnoses Left shoulder pain, unspecified chronicity Lenard Taylor MD Procedures XR Shoulder Lt 2+ Views [address] [facility] [address] [place], [place] [address] Referral ID Status Reason Start Date Expiration Date Visits V isits Requested Authorized [id number] Incomplete 04/16/2016 07/16/2017 1 1 M HAMMER OPERATOR Reason for Visit Reason Comments SHOULDER PAIN Encounter Details Date Type Department Care Team Description 04/16/2016 Surgical Consult [facility] Lenard Taylor shoulder pain, DEBBIE Helms MD unspecified [address] chronicity (Primary [place], [place] Dx) [id number] Social History Tobacco Use Types Packs/Day Years [...] 108.9 kg (240 lb) 04/16/2016 3:46 PM STEAM HAMMER OPERATOR Height 170.2 cm (5' 7) 04/16/2016 3:46 PM STEAM HAMMER OPERATOR Body Mass Index 37.59 04/16/2016 3:46 PM STEAM HAMMER OPERATOR documented in this encounter Progress Notes Lenard Taylor MD - 04/18/2016 11:12 AM CST NAME: KYAW SMITH MR#: [id number] CSN: [id number] AUTHENTICATING CLINICIAN: Lenard Taylor MD CONFIRM #: [...] 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 2.Employed as a contractor and licensed pesticide applicator, self-employed. 3., lives with . 4.Main hobbies include fishing and ice fishing. IMAGING: Review of MRI performed at [facility]. X-rays were ordered and independently reviewed [...] Cantu MD JPB: C: R:04/16/16 17:35 CONFIRM#:[id number] M HAMMER OPERATOR documented in this encounter Plan of Treatment Not on filedocumented as of this encounter Results XR Shoulder Lt 2+ Views (04/16/2016 4:23 PM STEAM HAMMER OPERATOR) Anatomical Region Laterality Modality Upper Extremity, Shoulder Digital Radiog valerie Specimen (Source) Anatomical Location Collection Method / Collectio n Time Received Time / Laterality Volume Narrative 04/19/2016 3:54 PM STEAM HAMMER OPERATOR X-rays of the left shoulder demonstrate [...] ty documented in this encounter Care Teams Program Director Substance Abuse Relationship Specialty Start Date End Date PcpBenny MD PCP - General 03/18/16 [place] [address] documented as of this encounter
--- OUTSIDE RECORDS SUMMARY | 2022-01-11 07:33 | XMS_ITS | Clinical Summary ---
:1965 Author Organization [facility] [place] [address] Care Team Providers Name Role Phone Osvaldo [...] 1977 Depression screening for age 12+ 1978 HIV for age 15-65 1981 BMI (ht and wt on same day) [...] Organization Address City/State/ZIP Code Phon e Number [facility] [address] [place] [address] LABORATORY-CENTRAL 2000 LABORATORY PATH TISSUE EXAM (10/26/2021 11:40 AM CDT) Component Value Ref Test Analysis Performed At [facility] gist Range Method Time Signature Case Report Pathology Report ?Case: [id number] ? 10/30/2021 [facility] Authorizing Provider: ??Darvin Fam, ??Collected: ? 10/26/2021 1140 ? 2:59 PM CDT HEALTH ? MD ? LABORATORY-C Ordering Location: ? [facility] ?Received: ?10/29/2021 0842 ? EN TRAL [...] (cassette 2 has undergone decalcification). 2:59 PM [facility] LABORATORY-C Time and date in formalin: 1140 on 10/26/2021 ENTRAL LABORATORY TRB 10/29/2021 Microscopic The final 10/30/2021 [facility] Description diagnosis is 2:59 PM [facility] based on LABORATORY-C microscopic ENTRAL examination of LABORATORY appropriate sections of all specimens. Additional 10/30/2021 [facility] Information Interpreted at [facility] Laboratory, Central Laboratory - [address] [place] [address] [address] [facility] [address], [place] [address] 2:59 PM [facility] LABORATORY-C ENTRAL LABORATORY Specimen Anatomical Collection Method Collection Time Receive d Time (Source) Location / / Volume Laterality Other (Left 10/26/2021 11:40 10/29/2021 8:42 Sinus Ethmoid) AM CDT AM CDT Darvin Reid MD PATHOLOGY/CYTOLOGY Performing Organization Address City/State/ZIP Code Phon e Number [facility] [address] [place], [place] [address] [address] LABORATORY-CENTRAL 2000 LABORATORY from Last 3 Months Insurance Payer Benefit Plan / Subscriber ID Effective Dates Phone Addre ss Type [facility] HEALTH HP DISTINCTIONS [id number] 2019-Presen [address] [place] [address] Care Teams Geotechnical Engineer Relationship Specialty Start Date End Date Osvaldo Kang MD PCP - General Family Practice 11/13/201999 [place] [address]
--- OUTSIDE RECORDS SUMMARY | 2022-01-11 07:33 | XMS_ITS | Encounter Summary ---
:1965 Author Organization [facility] Address [address] [place] [address] Care Team Providers Name Role Phone Unavailable Primary Care Provider Unavailable Reason for Visit Procedure/Equipment (Routine) - Incomplete Specialty Diagnoses / Procedures Referred By Contact Refer red To Contact Procedures Lenard Taylor MD Foreign Image(S) MR Extremity [address] [place] [address] [place], [place] [address] Referral ID Status Reason Start Date Expiration Date Visits V isits Requested Authorized [id number] Incomplete 03/26/2016 06/25/2017 1 1 Encounter Details Date Type Department Care Team Description 03/09/2016 Imaging [id number] RADIOLOGY CENTRAL FILM Lenard Traore MD LIBRARY [address] [facility]. [place], [place] [address] [place] [address] Social History Tobacco Use Types Packs/Day Years Used Date Smoking Tobacco: Never Assessed Sex Assigned at Date Recorded Not on file documented as of this encounter Plan of Treatment Not on filedocumented as of this encounter Procedures Procedure Name Priority Date/Time Associated Diagnosis Comme nts FOREIGN IMAGE(S) MR Routine 03/09/2016 12:00 AM R esults for this EXTREMITY LT TRACK RIDER procedure are i n the results section. documented in this encounter Results Foreign Image(S) MR Extremity Lt (03/09/2016 12:00 AM TRACK RIDER) Specimen (Source) Anatomical Location Collection Method / Collectio n Time Received Time / Laterality Volume Narrative PN POCT - 03/26/2016 8:25 AM TRACK RIDER These outside images have been uploaded into PACS. If the results were provided, they will be located on the Me rosario tab in the patient's chart. Lenard Taylor MD RAD NON-REPORTABLES Performing Organization Address City/State/ZIP Code Phon e Number POCT PN POCT documented in this encounter Visit Diagnoses Not on filedocumented in this encounter
--- OUTSIDE RECORDS SUMMARY | 2022-01-11 07:33 | XMS_ITS | Encounter Summary ---
:1965 Author Organization [email or web address] Address [address] [place] [address] Care Team Providers Name Role Phone Pcp, Pt Declines MD Primary Care Provider Reason for Visit Procedure/Equipment (Routine) - Incomplete Specialty Diagnoses / Procedures Referred By Contact Refer red To Contact Diagnoses Left shoulder pain, unspecified chronicity Lenard Taylor MD Procedures XR Shoulder Lt 2+ Views [address] [facility] [address] [place], [place] [address] Referral ID Status Reason Start Date Expiration Date Visits V isits Requested Authorized [id number] Incomplete 04/16/2016 07/16/2017 1 1 Encounter Details Date Type Department Care Team Description 04/16/2016 Imaging [facility] Lenard Taylor, Left shoulder pain, [address] [facility] unspecified chronicity [place], [place] [address] [address] [facility] [phone] [place] [address] (Wo rk) Social History Tobacco Use Types [...] anna marie n, Results for this VIEWS SCRAP DEALER unspecified procedure are i n chronicity the results section. documented in this encounter Results XR Shoulder Lt 2+ Views (04/16/2016 4:23 PM SCRAP DEALER) Anatomical Region Laterality Modality Upper Extremity, Shoulder Digital Radiog valerie Specimen (Source) Anatomical Location Collection Method / Collectio n Time Received Time / Laterality Volume Narrative 04/19/2016 3:54 PM SCRAP DEALER X-rays of the left shoulder demonstrate advanced [...] ty documented in this encounter Care Teams Clasp Machine Operator Relationship Specialty Start Date End Date PcpBenny MD PCP - General 03/18/16 [place], [place] [phone] documented as of this encounter
--- OUTSIDE RECORDS SUMMARY | 2022-01-11 07:33 | XMS_ITS | Clinical Summary ---
:1965 Author Organization [facility] Address [address] [address] Care Team Providers Name Role Phone Pcp, [...] for each transition of care or referral. [employer] Allergies No known active allergies Medications Medication [...] 108.9 kg (240 lb) 04/16/2016 3:46 PM GLUE MAKER Height 170.2 cm (5' 7) 04/16/2016 3:46 PM GLUE MAKER Body Mass Index 37.59 04/16/2016 3:46 PM GLUE MAKER Plan of Treatment Health Maintenance Due Date Last Done Comments Colon Cancer Screening Plan Due 1965 Hep C Screening (Preventive 1965 Services) HepB (1) 1965 PSA Screening Discussion 1965 COVID-19 Vaccine (#1) 1965 HIV Screening [...] Addre ss Type Group BCBS BCBS MNCARE [id number] 2016-Present [address] [address] [place] [address] Care Teams Critical Care Transport Nurse Relationship Specialty Start Date End Date Pcp, Benny Wood MD PCP - General 03/18/16 [place] [address]
[2022-01-11 12:26] LABS: Albumin* 4.2 g/dL (3.3-5.0); Chloride* 110 mmol/L (96-114)
[2022-01-11 12:27] LABS: Potassium* 4.6 mmol/L (3.6-5.1); Sodium* 143 mmol/L (135-149)
[2022-01-11 12:29] LABS: Bilirubin Total* 0.5 mg/dL (0.1-1.5); Carbon Dioxide* 28 mmol/L (20-32); Cholesterol* 211 mg/dL (90-199); Creatinine* 0.7 mg/dL (0.5-1.5); Estimated Glomerular Filt Rate 109 ml/min; Total Protein* 6.8 g/dL (6.0-8.3)
[2022-01-11 12:30] LABS: Alanine Aminotransferase* 20 U/L (4-50); Alkaline Phosphatase* 64 U/L (40-150); Aspartate Amino Transferase* 21 U/L (12-35); Blood Urea Nitrogen* 11 mg/dL (7-30); Calcium* 10.3 mg/dL (8.4-10.6); Glucose* 92 mg/dL (60-115); HDL Cholesterol* 85 mg/dL (>=40); LDL Cholesterol Calculated 111 mg/dL (<100); Triglycerides* 77 mg/dL (40-149)
== END 2022-01-11 09:27 | disposition home or self-care (01) ==
PROVIDERS: PCP Family Medicine; Visit Provider Family Medicine
DX: E78.5 Hyperlipidemia, unspecified (principal); I10 Essential (primary) hypertension
CPT/HCPCS: 80053; 80061

== ENCOUNTER 2022-12-05 08:16 | Outpatient (CLI) | payer BC, SELFPAY | END 2022-12-05 08:17 | disposition home or self-care (01) | LOC: NFLDREF 12-08 16:29 | PROVIDERS: PCP Family Medicine; Referring Provider Family Medicine; Visit Provider Family Medicine | DX: E78.5 Hyperlipidemia, unspecified (principal); I10 Essential (primary) hypertension | CPT/HCPCS: 80053; 80061 ==

== ENCOUNTER 2023-11-05 07:42 | Outpatient (CLI) | payer MEDICAID, SELFPAY ==
--- OUTSIDE RECORDS SUMMARY | 2023-11-06 08:50 | XMS_ITS | Clinical Summary ---
Author Organization [facility] Address [address] [place] [address] Care Team Providers Care Careers Counsellor Name Role Phone Pcp, Pt Declines Primary Care Provider [phone] Source Comments You are receiving this document as you are listed as the primary care provider,follow-up provider, or the patient has been referred to you for consultation.This is in compliance with the Medicare and[facility] EHR Incentive Program,which states Providers who transition their patient to another setting of careor provider of care or refers their patient to another provider of care shouldprovide summary care record for each transition of care or referral. [employer] Allergies No known active allergies Medications Medication Sig Dispensed Refills Start Date End Date Status aspirin 81 MG tablet Take 81 mg by mouth daily. Active omeprazole (PRILOSEC) 20 MG capsule Take 20 mg by mouth daily. Take 1 hour before a meal. Active acetaminophen (TYLENOL 8 HOUR ARTHRITIS PAIN) 650 MG controlled release tablet Take 650 mg by mouth every 8 hours as needed for Pain. Active atorvastatin (LIPITOR) 40 MG tablet Take 40 mg by mouth daily. Active amLODIPine (NORVASC) 10 MG tablet Take 10 mg by mouth daily. Active atenolol (TENORMIN) 100 MG tablet Take 100 mg by mouth daily. Active chlorthalidone (HYGROTON) 25 MG tablet Take 25 mg by mouth daily. Active predniSONE (DELTASONE) 20 MG tablet Take 20 mg by mouth daily. Active cyclobenzaprine (FLEXERIL) 5 MG tablet Take 5 mg by mouth three times a day as needed for Muscle Spasms. 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 Body Mass Index 37.59 04/16/2016 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 Plan of Treatment Health Maintenance Due Date Last Done Comments Colon Cancer Screening Plan Due 1966 Hep C Screening (Preventive Services) 1966 PSA Screening Discussion 1966 HIV Screening (Preventive Services) 1982 Adult Preventive Visit 02/10/1984 DTaP/Tdap/Td (1 - Tdap) 1985 HepB (1) 1985 Cholesterol 2001 Zoster/Shingles (1 of 2) 02/10/2016 COVID-19 Vaccine (1 - 2023-2 5 season) 2023 Influenza (#1) 2023 HepA Aged Out No longer eligi ble based on patient's age to complete this topic Hib Aged Out No longer eligi ble based on patient's age to complete this topic IPV (Polio) Aged Out No longer eligi ble based on patient's age to complete this topic MCV4 Aged Out No longer eligi ble based on patient's age to complete this topic Pneumococcal Aged Out No longer eligi ble based on patient's age to complete this topic Care Teams Careers Counsellor Relationship Specialty Start Date End Date Pcp, [place] [address] PCP - General 03/18/16
--- OUTSIDE RECORDS SUMMARY | 2023-11-06 08:50 | XMS_ITS | Clinical Summary ---
Author Organization [facility] Address [place], [place] [address] Care Team Providers Care Aix System Administrator Name Role Phone Osvaldo Kang MD Primary Care Provider [phone] Allergies No known active allergies Medications Medication Sig Dispensed Refills Start Date End Date Status aspirin (ECOTRIN) 81 mg enteric coated tablet Take 81 mg by mouth. Active acetaminophen SR (TYLENOL ARTHRITIS) 650 mg Extended-Release tablet Take 650 mg by mouth every 8 hours if needed. Active amLODIPine (NORVASC) 10 mg tablet 09/22/2020 Active atorvastatin (LIPITOR) 80 mg tablet 09/22/2020 Active chlorthalidone (HYGROTON) 25 mg tablet 09/22/2020 Active metoprolol succinate (TOPROL XL) 100 mg Sustained-Release tablet 09/22/2020 Active omeprazole (PRILOSEC) 20 mg Delayed-Release capsule 09/22/2020 Active methylPREDNISolone (Medrol, Srinath,) 4 mg tabletIndications:D DD (degenerative disc disease), cervical Take by mouth as instructed per packaging. 21 Tablet 11/13/2020 Active Active Problems No known active problems Social History Tobacco Use Types Packs/Day Years Used Date Smoking Tobacco: Every Day Cigarettes Smokeless Tobacco: Never Tobacco Cessation:Ready to Q uit: No; Counseling Given: Yes Social Connections Answer Date Recorded Frequency of Communication with Friends and Fami ly Not on file 2021 Financial Resource Strain Answer Date R ecorded Difficulty of Paying Living Expenses Not on file 2021 Difficulty of Paying Living Expenses Not on file 2021 Sex and Gender Information Value Date Recorded Sex Assigned at Not on file Gender Identity Not on file Sexual Orientation Not on file Obstetrics History Last Filed Vital Signs Vital Sign Reading Time Taken Comments Blood Pressure 163/96 11/13/2020 9:12 AM CDT Pulse 94 11/13/2020 9:09 AM CDT Temperature 36.6 ??C (97.9 ??F) 11/13/2020 9:09 AM CD T Respiratory Rate - - Oxygen Saturation 97% 11/13/2020 9:09 AM CDT Inhaled Oxygen Concentration - - Weight 113.3 kg (249 lb 12.8 oz) 11/13/2020 9:09 AM CDT Height - - Body Mass Index - - Plan of Treatment Health Maintenance Due Date Last Done Comments Tdap 1977 Depression screening for age 12+ 1978 HIV for age 15-65 1981 BMI (ht and wt on same day) for age 18+ 02/10/1984 Hepatitis C screening for ag e 18-79 02/10/1984 Tetanus booster 1986 Colonoscopy through age 75 2011 Lipids for age 45-75 2011 Zoster (shingles) series for age 50+ (1 of 2) 02/10/2016 COVID-19 vaccine series ( season) 2023 Influenza for age 50-64 10/19/2023 Pneumococcal series for age 6-64 Aged Out No longer eligible based on patient's age to complete this topic Care Teams Aix System Administrator Relationship Specialty Start Date End Date Osvaldo Kang MD [address] [place] [address] PCP - General Family Practice 11/13/20
== END 2023-11-05 07:43 | disposition home or self-care (01) ==
LOC: NFLDREF 11-06 08:48
PROVIDERS: PCP Family Medicine; Referring Provider Family Medicine; Visit Provider Family Medicine
DX: E78.5 Hyperlipidemia, unspecified (principal); I10 Essential (primary) hypertension
CPT/HCPCS: 80053; 80061

== ENCOUNTER 2024-12-20 07:54 | Outpatient (CLI) | payer OTHER, SELFPAY | END 2024-12-20 07:55 | disposition home or self-care (01) | LOC: NFLDREF 12-23 09:21 | PROVIDERS: PCP Family Medicine; Referring Provider Family Medicine; Visit Provider Family Medicine | DX: E78.5 Hyperlipidemia, unspecified (principal) | CPT/HCPCS: 80053; 80061 ==